=== PATIENT | male | born 1935 | race Caucasian/White ===

== ENCOUNTER 2018-01-08 05:28 | Inpatient (IN) | payer MEDICARE, OTHER ==
[2018-01-08] VITALS (8 sets, daily range): BP systolic 96–126; BP diastolic 56–72; PULSE 89–97; RESP 16–18; TEMP 97.4–98.7; O2SAT 94–100
[~2018-01-08] VITALS: Ht 167.6 cm; Wt 74.2 kg
[~2018-01-08 05:28] MED LIST: ACET325T PO; AMLO10 PO; AMLO5TAB2 PO; AVEELOT TOPICAL; DICL1GEL TOPICAL; FURO20TA PO; LORA0.5T PO; MELA1CAP; METF500 PO; METF500T PO; MIRTA15 PO; POTA10SO12 PO; Potassium Cl 40 Meq/30 Ml Liq PO; QUET1TAB7 PO; REME15TA PO; SERO50TA PO; XARE15TA PO
[2018-01-08] MEDS ORDERED: PANTOPRAZOLE INJ 80 MG in SODIUM CHLORIDE 0.9% INJ 35 ML IV ONE (05:45)
[2018-01-08] MEDS ORDERED: PANTOPRAZOLE INJ 80 MG in SODIUM CHLORIDE 0.9% INJ 100 ML IV SCH ×2 (05:45→06:59)
[2018-01-08] MEDS ORDERED: SODIUM CHLORIDE 0.9% FLUSH 10 ML FLUSH IVF PRN (05:45)
[2018-01-08 05:59] LABS: BASOPHIL % 0.1 % (0.0-2.0); HEMATOCRIT 34.8 % (39.0-51.0); HEMOGLOBIN 12.3 GM/DL (13.0-17.0); LYMPH % 3.8 % (9.0-44.0); LYMPHOCYTE # 0.5 TH/MM3 (1.0-4.8); MEAN CELL VOLUME 90.5 FL (80.0-100.0); MEAN CORPUSCULAR HGB CONC 35.4 % (32.0-36.0); MEAN PLATELET VOLUME 7.8 FL (7.0-11.0); MONO % 3.7 % (0.0-8.0); MONOCYTE # 0.5 TH/MM3 (0-0.9); NEUT % 92.4 % (16.0-70.0); PLATELET COUNT 198 TH/MM3 (150-450); RED BLOOD COUNT 3.85 MIL/MM3 (4.50-5.90); RED CELL DISTRIBUTION WIDTH 14.3 % (11.6-17.2)
[2018-01-08] MEDS ORDERED: PANTOPRAZOLE SODIUM 40 MG VIAL IV PUSH ONE (06:00)
[2018-01-08] MEDS ORDERED: POTA-163 PO (06:04)
[2018-01-08] MEDS ORDERED: SERO200T PO (06:04)
[2018-01-08] MEDS ORDERED: ARIC23TA PO (06:04)
[2018-01-08] MEDS ORDERED: ZOFR4SOL PO (06:04)
[2018-01-08] MEDS ORDERED: AMLO10 PO (06:04)
[2018-01-08 06:15] LABS: INTERNATIONAL NORMALIZED RATIO 1.3 RATIO; PROTHROMBIN TIME - PATIENT 12.9 SEC (9.8-11.6)
[2018-01-08 06:16] LABS: ALBUMIN 3.7 GM/DL (3.4-5.0); ALT (GPT) 14 U/L (12-78); AST (GOT) 9 U/L (15-37); BICARBONATE 25.4 MEQ/L (21.0-32.0); BLOOD UREA NITROGEN 26 MG/DL (7-18); CALCIUM 8.6 MG/DL (8.5-10.1); CHLORIDE 106 MEQ/L (98-107); GLOMERULAR FILTRATION RATE 58 ML/MIN (>89); GLUCOSE,RANDOM 197 MG/DL (74-106); SODIUM (NA) 140 MEQ/L (136-145)
[2018-01-08 06:18] LABS: ALKALINE PHOSPHATASE 73 U/L (45-117); TOTAL BILIRUBIN ADULT 0.8 MG/DL (0.2-1.0); TOTAL PROTEIN 6.9 GM/DL (6.4-8.2)
--- NOTE | 2018-01-08 06:23 | PD ---
HPI Chief Complaint: GI Complaint Time Seen by Provider: 05:43 Travel History International Travel<30 days: No Contact w/Intl Traveler<30days: No Traveled to known affect area: No History of Present Illness HPI Patient is a 82-year-old male who was in a assisted and they report that he had multiple episodes of coffee-ground emesis with a large quantity of dark coffee ground like vomit. Patient on arrival has normal blood pressure normal heart rate and he is guaiac negative with brown stool on initial eval he has no abdominal pain he has his right eyes held close however he is able to with nominal stimulation answer questions appropriately but he is demented his med list includes Felipe koroma main complaint is from the assisted that he had coffee ground emesis assume to be GI bleed upper and is in the ER stable at this time PFS Past Medical History Anemia: Yes Atrial Fibrillation: Yes Anxiety: Yes Cancer: No Cardiovascular Problems: No High Cholesterol: Yes Diabetes: Yes Patient Takes Glucophage: Yes (metformin) Diminished Hearing: No Deep Vein Thrombosis: Yes (xarelto ) GERD: Yes Headaches: No Hypertension: Yes Implanted Vascular Access Dvce: No Insomnia: Yes Medical other: Yes (dvt) Neurologic: Yes (DEMENTIA) Psychiatric: Yes Seizures: No Tetanus Vaccination: Unknown Influenza Vaccination: Yes Past Surgical History Other Surgery: Yes Social History Alcohol Use: No Tobacco Use: No Substance Use: No Allergies-Medications (Allergen,Severity, Reaction): Coded Allergies: No Known Allergies (Verified Adverse Reaction, Unknown, 01/08/18) Reported Meds & Prescriptions Reported Meds & Active Scripts Active Xarelto (Rivaroxaban) 15 Mg Tab 15 Mg PO DAILY [Potassium Cl 40 Meq/30 Ml Liq] 40 MEQ/30 ML Liqd 20 Meq PO DAILY Glucophage (Metformin HCl) 500 Mg Tab 500 Mg PO BIDPC Furosemide 20 Mg Tab 20 Mg PO DAILY Reported Potassium Chloride ER (Potassium Chloride) 20 Meq Tab 20 Meq PO DAILY Norvasc (Amlodipine Besylate) 10 Mg Tab 10 Mg PO DAILY Aricept (Donepezil) 23 Mg Tab 10 Mg PO HS Do not split, crushed or chewed. Zofran Liq (Ondansetron HCl) 4 Mg/5 Ml Soln 4 Mg PO Q8H PRN Seroquel (Quetiapine Fumarate) 200 Mg Tab 200 Mg PO BID Review of Systems Except as stated in HPI: all other systems reviewed are Neg Physical Exam Narrative GENERAL: Patient is awake alert and he is not complaining of anything at this time asked that he is any pain he said no but then he demented he says stop she' s kicking a SKIN: Warm and dry. HEAD: Atraumatic. Normocephalic. EYES: Pupils equal and round. No scleral icterus. No injection or drainage. He has eyelid droop on the right lid left eye is open the right eye is closed ENT: No nasal bleeding or discharge. Mucous membranes pink and moist. NECK: Trachea midline. No JVD. CARDIOVASCULAR: Regular rate and rhythm. RESPIRATORY: No accessory muscle use. Clear to auscultation. Breath sounds equal bilaterally. GASTROINTESTINAL: Abdomen soft, non-tender, nondistended. Hepatic and splenic margins not palpable. Rectal exam Brown stool guaiac negative MUSCULOSKELETAL: Extremities without clubbing, cyanosis, or edema. No obvious deformities. NEUROLOGICAL: Awake and alert. No obvious cranial nerve deficits. Motor grossly within normal limits. Five out of 5 muscle strength in the arms and legs. Normal speech. PSYCHIATRIC: Appropriate mood and affect; insight and judgment normal. Data Data Last Documented VS Vital Signs Date Time Temp Pulse Resp B/P (MAP) Pulse Ox O2 Delivery O2 Flow Rate FiO2 01/08/18 05:51 100 Room Air 01/08/18 05:33 97.4 89 18 Orders Orders Complete Blood Count With Diff (01/08/18 05:45) Comprehensive Metabolic Panel (01/08/18 05:45) Lipase (01/08/18 05:45) Prothrombin Time / Inr (Pt) (01/08/18 05:45) Urinalysis - C+S If Indicated (01/08/18 05:45) Type And Screen (01/08/18 05:45) Ecg Monitoring (01/08/18 05:45) Iv Access Insert/Monitor (01/08/18 05:45) Oximetry (01/08/18 05:45) Sodium Chloride 0.9% Flush (Ns Flush) (01/08/18 05:45) Sodium Chloride 0.9... W/Pantoprazole In (01/08/18 05:45) Sodium Chloride 0.9... W/Pantoprazole In (01/08/18 05:45) Pantoprazole Inj (Protonix Inj) (01/08/18 06:00) Sodium Chloride 0.9... W/Pantoprazole In (01/08/18 06:59) Chest, Pa & Lat (01/08/18 ) Labs Laboratory Tests Test 01/08/18 05:45 White Blood Count 13.0 TH/MM3 Red Blood Count 3.85 MIL/MM3 Hemoglobin 12.3 GM/DL Hematocrit 34.8 % Mean Corpuscular Volume 90.5 FL Mean Corpuscular Hemoglobin 32.0 PG Mean Corpuscular Hemoglobin Concent 35.4 % Red Cell Distribution Width 14.3 % Platelet Count 198 TH/MM3 Mean Platelet Volume 7.8 FL Neutrophils (%) (Auto) 92.4 % Lymphocytes (%) (Auto) 3.8 % Monocytes (%) (Auto) 3.7 % Eosinophils (%) (Auto) 0.0 % Basophils (%) (Auto) 0.1 % Neutrophils # (Auto) 12.0 TH/MM3 Lymphocytes # (Auto) 0.5 TH/MM3 Monocytes # (Auto) 0.5 TH/MM3 Eosinophils # (Auto) 0.0 TH/MM3 Basophils # (Auto) 0.0 TH/MM3 CBC Comment DIFF FINAL Differential Comment Prothrombin Time 12.9 SEC Prothromb Time International Ratio 1.3 RATIO Blood Urea Nitrogen 26 MG/DL Creatinine 1.20 MG/DL Random Glucose 197 MG/DL Albumin 3.7 GM/DL Calcium Level 8.6 MG/DL Aspartate Amino Transf (AST/SGOT) 9 U/L Alanine Aminotransferase (ALT/SGPT) 14 U/L Sodium Level 140 MEQ/L Potassium Level 3.6 MEQ/L Chloride Level 106 MEQ/L Carbon Dioxide Level 25.4 MEQ/L Anion Gap 9 MEQ/L Estimat Glomerular Filtration Rate 58 ML/MIN Lipase 168 U/L [facility] Medical Decision Making Medical Screen Exam Complete: Yes Emergency Medical Condition: Yes Differential Diagnosis Patient's differential diagnosis includes coffee-ground emesis from losing upper GI ulcer versus duodenal ulcer versus portal varices oozing blood. Versus having eaten food that was dark in nature because his initial guaiac is negative Narrative Course Patient is given 500 cc bolus normal saline he is given Protonix push and drip based on history of coffee ground emesis rectal exam Brown stool guaiac negative. Patient's vitals 122/70 blood pressure with a normal heart rate of 90 no signs of acute hemorrhage at this time. Will be evaluated for H&H will be given Protonix push and drip and consult inpatient as an inpatient patient with GI consult Bridger Damon MD Jan 08, 2018 06:23
--- NOTE | 2018-01-08 06:48 | RADRPT ---
EXAM DATE/TIME: 01/08/2018 06:29 [place] COMPARISON: No previous studies available for comparison. INDICATIONS : Pt with Nausea and Coffee ground emesis this morning. History of GI Bleed. MEDICAL HISTORY : Diabetes mellitus type II. Hypercholesterolemia. Hypertension. A-Fib, DVT, GERD SURGICAL HISTORY : None. ENCOUNTER: Initial ACUITY: 1 day PAIN SCORE: 9/10 LOCATION: Bilateral chest FINDINGS: PA and lateral views of the chest demonstrate mild basilar airspace disease. There is peribronchial t hickening. No significant effusion. No pneumothorax. Heart size normal. CONCLUSION: 1. Mild basilar airspace disease with mild peribronchial thickening. Differential diagnosis includes mild bronchopneumonia and aspiration. No effusion. Minh Schaefer MD on January 08, 2018 at 6:45 Board Certified Radiologist. This report was verified electronically.
[2018-01-08] MEDS ORDERED: AZITHROMYCIN INJ 500 MG in SODIUM CHLOR 0.9% 250 ML INJ 250 ML IV STA (07:25)
[2018-01-08] MEDS ORDERED: metroNIDAZOLE 500 MG INJ 100 ML IV STA (07:36)
[2018-01-08] MEDS ORDERED: cefTRIAXone INJ 2,000 MG in SODIUM CHLORIDE 0.9% INJ 100 ML IV STA (07:37)
[2018-01-08] MEDS ORDERED: ACETAMINOPHEN 325 MG TAB PO PRN (07:45)
[2018-01-08] MEDS ORDERED: NALOXONE HCL 0.4 MG/ML AMP IV PUSH PRN (07:45)
[2018-01-08] MEDS ORDERED: MAGNESIUM HYDROXIDE SUSP 30 ML CUP PO PRN (07:45)
[2018-01-08] MEDS ORDERED: ONDANSETRON HCL 4 MG/2 ML VIAL IVP PRN (07:45)
[2018-01-08] MEDS ORDERED: LACTULOSE SYRUP 20 GM/30 ML CUP PO PRN (07:45)
[2018-01-08] MEDS ORDERED: SENNOSIDES 8.6 MG TAB PO PRN (07:45)
[2018-01-08] MEDS ORDERED: BISACODYL 10 MG SUPP RECTAL PRN (07:45)
--- NOTE | 2018-01-08 07:53 | PD ---
Physical Exam Narrative GENERAL: SKIN: Warm and dry. HEAD: Atraumatic. Normocephalic. EYES: Pupils equal and round. No scleral icterus. No injection or drainage. ENT: No nasal bleeding or discharge. Mucous membranes pink and moist. NECK: Trachea midline. No JVD. CARDIOVASCULAR: Regular rate and rhythm. RESPIRATORY: No accessory muscle use. Clear to auscultation. Breath sounds equal bilaterally. GASTROINTESTINAL: Abdomen soft, non-tender, nondistended MUSCULOSKELETAL: Extremities without clubbing, cyanosis, or edema. No obvious deformities. NEUROLOGICAL: Awake and alert. No obvious cranial nerve deficits. Motor grossly within normal limits. Five out of 5 muscle strength in the arms and legs. Normal speech. PSYCHIATRIC: Appropriate mood and affect; insight and judgment normal. Data Data Last Documented VS Vital Signs Date Time Temp Pulse Resp B/P (MAP) Pulse Ox O2 Delivery O2 Flow Rate FiO2 01/08/18 05:51 100 Room Air 01/08/18 05:33 97.4 89 18 Orders Orders Complete Blood Count With Diff (01/08/18 05:45) Comprehensive Metabolic Panel (01/08/18 05:45) Lipase (01/08/18 05:45) Prothrombin Time / Inr (Pt) (01/08/18 05:45) Urinalysis - C+S If Indicated (01/08/18 05:45) Type And Screen (01/08/18 05:45) Ecg Monitoring (01/08/18 05:45) Iv Access Insert/Monitor (01/08/18 05:45) Oximetry (01/08/18 05:45) Sodium Chloride 0.9% Flush (Ns Flush) (01/08/18 05:45) Sodium Chloride 0.9... W/Pantoprazole In (01/08/18 05:45) Sodium Chloride 0.9... W/Pantoprazole In (01/08/18 05:45) Pantoprazole Inj (Protonix Inj) (01/08/18 06:00) Sodium Chloride 0.9... W/Pantoprazole In (01/08/18 06:59) Chest, Pa & Lat (01/08/18 ) Ceftriaxone Inj (Rocephin Inj) (01/08/18 07:37) Azithromycin Inj (Zithromax Inj) (01/08/18 07:25) Metronidazole 500 Mg Inj (Flagyl 500 Mg (01/08/18 07:36) Blood Culture (01/08/18 07:25) Sputum Culture And Gram Stain (01/08/18 07:25) Influenzae A/B Antigen (01/08/18 07:25) Lactic Acid Sepsis Protocol (01/08/18 07:25) Admit Order (Ed Use Only) (01/08/18 07:46) Admit To Inpatient (01/08/18 ) Vital Signs (Adult) Q4H (01/08/18 07:45) Activity Oob With Assistance (01/08/18 07:45) Amphibian Crewmember / Telemetry .CONTINUOUS (01/08/18 07:45) Diet Npo (01/08/18 Breakfast) Acetaminophen (Tylenol) (01/08/18 07:45) Ondansetron Inj (Zofran Inj) (01/08/18 07:45) Basic Metabolic Panel (Bmp) (01/09/18 06:00) Complete Blood Count With Diff (01/09/18 06:00) Resp Oxygen Tai C Titrat 1-4 L (01/08/18 ) Scd Bilateral/Knee High SWATI.BID (01/08/18 07:45) Ector Bilateral/Knee High SWATI.QSHIFT (01/08/18 07:45) Naloxone Inj (Narcan Inj) (01/08/18 07:45) Docusate Sodium-Senna (Nayely-Colace) (01/08/18 09:00) Magnesium Hydroxide Liq (Milk Of Magnesi (01/08/18 07:45) Sennosides (Senokot) (01/08/18 07:45) Bisacodyl Supp (Dulcolax Supp) (01/08/18 07:45) Lactulose Liq (Lactulose Liq) (01/08/18 07:45) Inpatient Certification (01/08/18 ) Consult Gastroenterology (01/08/18 ) Hgb & Hct (01/08/18 11:30) Hgb & Hct (01/08/18 17:30) Hgb & Hct (01/08/18 23:30) Hgb & Hct (01/09/18 05:30) Hgb & Hct (01/09/18 11:30) Hgb & Hct (01/09/18 17:30) Sodium Chloride 0.9... W/Pantoprazole In (01/08/18 08:45) Speech Therapy Consult-Eval/Tx (01/08/18 07:45) Labs Laboratory Tests Test 01/08/18 05:45 White Blood Count 13.0 TH/MM3 Red Blood Count 3.85 MIL/MM3 Hemoglobin 12.3 GM/DL Hematocrit 34.8 % Mean Corpuscular Volume 90.5 FL Mean Corpuscular Hemoglobin 32.0 PG Mean Corpuscular Hemoglobin Concent 35.4 % Red Cell Distribution Width 14.3 % Platelet Count 198 TH/MM3 Mean Platelet Volume 7.8 FL Neutrophils (%) (Auto) 92.4 % Lymphocytes (%) (Auto) 3.8 % Monocytes (%) (Auto) 3.7 % Eosinophils (%) (Auto) 0.0 % Basophils (%) (Auto) 0.1 % Neutrophils # (Auto) 12.0 TH/MM3 Lymphocytes # (Auto) 0.5 TH/MM3 Monocytes # (Auto) 0.5 TH/MM3 Eosinophils # (Auto) 0.0 TH/MM3 Basophils # (Auto) 0.0 TH/MM3 CBC Comment DIFF FINAL Differential Comment Prothrombin Time 12.9 SEC Prothromb Time International Ratio 1.3 RATIO Blood Urea Nitrogen 26 MG/DL Creatinine 1.20 MG/DL Random Glucose 197 MG/DL Total Protein 6.9 GM/DL Albumin 3.7 GM/DL Calcium Level 8.6 MG/DL Alkaline Phosphatase 73 U/L Aspartate Amino Transf (AST/SGOT) 9 U/L Alanine Aminotransferase (ALT/SGPT) 14 U/L Total Bilirubin 0.8 MG/DL Sodium Level 140 MEQ/L Potassium Level 3.6 MEQ/L Chloride Level 106 MEQ/L Carbon Dioxide Level 25.4 MEQ/L Anion Gap 9 MEQ/L Estimat Glomerular Filtration Rate 58 ML/MIN Lipase 168 U/L [facility] Medical Record Reviewed: Yes Supervised Visit with REAGAN: No Narrative Course Coagulation factors normal limits, hemodynamically stable, H&H stable and normal, electrolytes within normal limits. Diagnosis Primary Impression: Coffee ground emesis Additional Impression: Aspiration pneumonia Qualified Codes: J69.0 - Pneumonitis due to inhalation of food and vomit Admitting Information Admitting Physician Requests: Observation John Sagastume MD Jan 08, 2018 07:53
[2018-01-08 08:34] LABS: LACTIC ACID SEPSIS PROTOCOL 2.8 mmol/L (0.4-2.0)
[2018-01-08] MEDS: DOCUSATE SODIUM 50 MG/SENNA 8.6 MG TAB PO SCH ×2 (09:00→21:03)
--- NOTE | 2018-01-08 09:39 | PD.CONS ---
HPI History of Present Illness This is a 82 year old M with medical history significant for anemia, atrial fibrillation, hyperlipidemia, DM, history of DVT, and dementia. Pt is a resident at a [place], he was sent by staff for evaluation of coffee ground emesis. Pt is unable to respond appropriately to questions, and therefore most of the history is obtained through chart review. Pts son (Jesse Dewey) who is also POA is at bedside, he does not know much history. States he was called by [place] staff this morning and was told pt was vomiting what appeared to be blood and they were sending him to the ER. Pt is on Xarelto for history of DVT and atrial fibrillation, last dosage received yesterday. Per ER notes pt had a normal brown BM, guaiac stool negative. H/H 12.3/34.8 on admission, serial H/H ordered by attending. Per pts son pt has never had EGD or colonoscopy in the past, denies him ever having history of GIB. (Jailyn Sarmiento) PFSH Past Medical History History of DVT Atrial fibrillation DM HTN Hyperlipidemia Past Surgical History Femur (Jailyn Sarmiento) Coded Allergies: No Known Allergies (Verified Allergy, Unknown, 01/08/18) Review of Systems unable to obtain, pt demented, does not express complaints (Jailyn Sarmiento) GI Exam Vitals I&O Vital Signs Date Time Temp Pulse Resp B/P (MAP) Pulse Ox O2 Delivery O2 Flow Rate FiO2 01/08/18 08:56 01/08/18 05:51 100 Room Air 01/08/18 05:39 120/59 (79) 01/08/18 05:39 126/61 (82) 01/08/18 05:33 97.4 89 18 96/72 (80) 94 I/O 01/07/18 01/07/18 01/07/18 01/08/18 01/08/18 01/08/18 07:00 15:00 23:00 07:00 15:00 23:00 Intake Total 100 ml Balance 100 ml IV Total 100 ml # Bowel Movements 1 Imaging Last Impressions Chest X-Ray 01/08/18 0000 Signed Impressions: Service Date/Time: Monday, January 08, 2018 06:29 - CONCLUSION: 1. Mild basilar airspace disease with mild peribronchial thickening. Differential diagnosis includes mild bronchopneumonia and aspiration. No effusion. Minh Schaefer MD Laboratory Test 01/08/18 05:45 01/08/18 08:10 White Blood Count 13.0 TH/MM3 Red Blood Count 3.85 MIL/MM3 Hemoglobin 12.3 GM/DL Hematocrit 34.8 % Mean Corpuscular Volume 90.5 FL Mean Corpuscular Hemoglobin 32.0 PG Mean Corpuscular Hemoglobin Concent 35.4 % Red Cell Distribution Width 14.3 % Platelet Count 198 TH/MM3 Mean Platelet Volume 7.8 FL Neutrophils (%) (Auto) 92.4 % Lymphocytes (%) (Auto) 3.8 % Monocytes (%) (Auto) 3.7 % Eosinophils (%) (Auto) 0.0 % Basophils (%) (Auto) 0.1 % Neutrophils # (Auto) 12.0 TH/MM3 Lymphocytes # (Auto) 0.5 TH/MM3 Monocytes # (Auto) 0.5 TH/MM3 Eosinophils # (Auto) 0.0 TH/MM3 Basophils # (Auto) 0.0 TH/MM3 CBC Comment DIFF FINAL Differential Comment Prothrombin Time 12.9 SEC Prothromb Time International Ratio 1.3 RATIO Blood Urea Nitrogen 26 MG/DL Creatinine 1.20 MG/DL Random Glucose 197 MG/DL Total Protein 6.9 GM/DL Albumin 3.7 GM/DL Calcium Level 8.6 MG/DL Alkaline Phosphatase 73 U/L Aspartate Amino Transf (AST/SGOT) 9 U/L Alanine Aminotransferase (ALT/SGPT) 14 U/L Total Bilirubin 0.8 MG/DL Sodium Level 140 MEQ/L Potassium Level 3.6 MEQ/L Chloride Level 106 MEQ/L Carbon Dioxide Level 25.4 MEQ/L Anion Gap 9 MEQ/L Estimat Glomerular Filtration Rate 58 ML/MIN Lipase 168 U/L Lactic Acid Level 2.8 mmol/L Date/Time Source Procedure Growth Status 01/08/18 08:51 Blood Peripheral Aerobic Blood Culture Pending Received 01/08/18 08:51 Blood Peripheral Anaerobic Blood Culture Pending Received 01/08/18 08:25 Nasal Washing Influenza Types A,B Antigen (TRENT) - Final NEGATIVE FOR FLU A AND B ANTIGEN.... Complete Physical Examination HEENT: Normocephalic; atraumatic CHEST: Even/unlabored CARDIAC: Irregular ABDOMEN: Soft, nondistended, nontender (pt does not grimace with palpation), bowel sounds active EXTREMITIES: No clubbing, cyanosis, or edema. SKIN: Normal; no rash; no jaundice. VIBRATION ANALYST: Awake, not oriented (Jailyn Sarmiento) Assessment and Plan Plan Assessment - Coffee ground emesis per [place] staff- sent for evaluation- brown stool reported in ER, guaiac stool negative. Pts son at bedside, denies pt having history of GIB. States pt has never had EGD or colonoscopy. Pt on Xarelto for history of DVT and a-fib, last dosage received yesterday. H/H 12.3/34.8 on admission. VS stable. Currently on Pantoprazole chandu CASTELLANOS Jesse Dewey (son) can be contacted at [phone] for consent Plan: EGD tomorrow NPO after MN Obtain consent Serial H/H Transfuse as needed Continue Protonix gtt Notify GI of any change in status Hold anticoagulation Further recommendations to follow based on results of above Pt has been seen and examined by myself and Dr. Vo and this note is written on her behalf (Jailyn Sarmiento) Physician Comments seen, examined agree with above (Abigail Vo MD) Jailyn Sarmiento Jan 08, 2018 09:39 Abigail Vo MD Jan 08, 2018 20:29
--- NOTE | 2018-01-08 10:00 | HHI.HP ---
[facility] Service [facility] Primary Care Physician Yakelin Montilla MD Admission Diagnosis COFFEE GROUND EMESIS, ASPIRATION PNA Diagnoses: (1) Coffee ground emesis (2) Aspiration pneumonia (3) Dementia Chief Complaint: Coffee ground emesis Travel History International Travel<30 Days: No Contact w/Intl Traveler <30 Da: No Traveled to Known Affected Are: No History of Present Illness The patient is an 82-year-old male who was sent from the retirement facility following multiple episodes of coffee-ground emesis. There is concerned that he aspirated during the episodes of vomiting. The patient has advanced dementia and is unable to provide any history. He denies pain currently. He denies shortness of breath. Further history is obtained from discussion with the patient's son at bedside as well as review of the patient's chart. Review of Systems ROS Limitations: Clinical Condition, Poor Historian Past Family Social History Past Medical History Atrial fibrillation Diabetes mellitus Hypertension Dementia Past Surgical History Repair of femur fracture Reported Medications Xarelto (Rivaroxaban) 15 Mg Tab 15 Mg PO DAILY [Potassium Cl 40 Meq/30 Ml Liq] 40 MEQ/30 ML Liqd 20 Meq PO DAILY Glucophage (Metformin HCl) 500 Mg Tab 500 Mg PO BIDPC Furosemide 20 Mg Tab 20 Mg PO DAILY Potassium Chloride ER (Potassium Chloride) 20 Meq Tab 20 Meq PO DAILY Norvasc (Amlodipine Besylate) 10 Mg Tab 10 Mg PO DAILY Aricept (Donepezil) 23 Mg Tab 10 Mg PO HS Do not split, crushed or chewed. Zofran Liq (Ondansetron HCl) 4 Mg/5 Ml Soln 4 Mg PO Q8H PRN Seroquel (Quetiapine Fumarate) 200 Mg Tab 200 Mg PO BID Allergies: Coded Allergies: No Known Allergies (Verified Allergy, Unknown, 01/08/18) Family History Unobtainable. Social History No reported history of alcohol, tobacco, or illicit drug use. Physical Exam Vital Signs Vital Signs Date Time Temp Pulse Resp B/P (MAP) Pulse Ox O2 Delivery O2 Flow Rate FiO2 01/08/18 08:56 01/08/18 05:51 100 Room Air 2/9/18 05:39 120/59 (79) 01/08/18 05:39 126/61 (82) 01/08/18 05:33 97.4 89 18 96/72 (80) 94 Physical Exam GENERAL: Elderly male in no acute distress. HEENT: Normocephalic, atraumatic. Pupils equal, round and reactive. Extraocular movements intact. No scleral icterus. No injection or drainage. Oropharynx is clear. Mucous membranes are moist. CARDIOVASCULAR: Regular rate and rhythm without murmurs, gallops, or rubs. RESPIRATORY: Clear to auscultation. No wheezes, rales, or rhonchi. Breathing is non-labored. GASTROINTESTINAL: Abdomen soft, non-tender, nondistended. EXTREMITIES: No lower extremity edema. No calf tenderness. PSYCH: Alert, confused. Laboratory Laboratory Tests Test 01/08/18 05:45 01/08/18 08:10 White Blood Count 13.0 Red Blood Count 3.85 Hemoglobin 12.3 Hematocrit 34.8 Mean Corpuscular Volume 90.5 Mean Corpuscular Hemoglobin 32.0 Mean Corpuscular Hemoglobin Concent 35.4 Red Cell Distribution Width 14.3 Platelet Count 198 Mean Platelet Volume 7.8 Neutrophils (%) (Auto) 92.4 Lymphocytes (%) (Auto) 3.8 Monocytes (%) (Auto) 3.7 Eosinophils (%) (Auto) 0.0 Basophils (%) (Auto) 0.1 Neutrophils # (Auto) 12.0 Lymphocytes # (Auto) 0.5 Monocytes # (Auto) 0.5 Eosinophils # (Auto) 0.0 Basophils # (Auto) 0.0 CBC Comment DIFF FINAL Differential Comment Prothrombin Time 12.9 Prothromb Time International Ratio 1.3 Blood Urea Nitrogen 26 Creatinine 1.20 Random Glucose 197 Total Protein 6.9 Albumin 3.7 Calcium Level 8.6 Alkaline Phosphatase 73 Aspartate Amino Transf (AST/SGOT) 9 Alanine Aminotransferase (ALT/SGPT) 14 Total Bilirubin 0.8 Sodium Level 140 Potassium Level 3.6 Chloride Level 106 Carbon Dioxide Level 25.4 Anion Gap 9 Estimat Glomerular Filtration Rate 58 Lipase 168 Lactic Acid Level 2.8 Date/Time Source Procedure Growth Status 01/08/18 08:51 Blood Peripheral Aerobic Blood Culture Pending Received 01/08/18 08:51 Blood Peripheral Anaerobic Blood Culture Pending Received 01/08/18 08:25 Nasal Washing Influenza Types A,B Antigen (TRENT) - Final NEGATIVE FOR FLU A AND B ANTIGEN.... Complete Result Diagram: 01/08/18 0545 01/08/18 0545 Imaging Last Impressions Chest X-Ray 01/08/18 0000 Signed Impressions: Service Date/Time: Monday, January 08, 2018 06:29 - CONCLUSION: 1. Mild basilar airspace disease with mild peribronchial thickening. Differential diagnosis includes mild bronchopneumonia and aspiration. No effusion. MD Martha Calvillo VTE Risk Assessment Caprini VTE Risk Assessment: Mod/High Risk (score >= 2) Caprini Risk Assessment Model Point Value = 1 Point Value = 2 Point Value = 3 Point Value = 5 Age 41-60 Minor surgery BMI > 25 kg/m2 Swollen legs Varicose veins or History of unexplained or recurrent spontaneous Oral contraceptives or hormone replacement Sepsis (< 1 month) Serious lung disease, including pneumonia (< 1 month) Abnormal pulmonary function Acute myocardial infarction Congestive heart failure (< 1 month) History of inflammatory bowel disease Medical patient at bed rest Age 61-74 Arthroscopic surgery Major open surgery (> 45 min) Laparoscopic surgery (> 45 min) Malignancy Confined to bed (> 72 hours) Immobilizing plaster cast Central venous access Age >= 75 History of VTE Family history of VTE Factor V Leiden Prothrombin [id number] Lupus anticoagulant Anticardiolipin antibodies Elevated serum homocysteine Heparin-induced thrombocytopenia Other congenital or acquired thrombophilia Stroke (< 1 month) Elective arthroplasty Hip, pelvis, or leg fracture Acute spinal cord injury (< 1 month) Prophylaxis Regimen Total Risk Factor Score Risk Level Prophylaxis Regimen 0-1 Low Early ambulation 2 Moderate Order ONE of the following: *Sequential Compression Device (SCD) *Heparin 5000 units SQ BID 3-4 Higher Order ONE of the following medications: *Heparin 5000 units SQ TID *Enoxaparin/Lovenox 40 mg SQ daily (WT < 150 kg, CrCl > 30 mL/min) *Enoxaparin/Lovenox 30 mg SQ daily (WT < 150 kg, CrCl > 10-29 mL/min) *Enoxaparin/Lovenox 30 mg SQ BID (WT < 150 kg, CrCl > 30 mL/min) AND/OR *Sequential Compression Device (SCD) 5 or more Highest Order ONE of the following medications: *Heparin 5000 units SQ TID (Preferred with Epidurals) *Enoxaparin/Lovenox 40 mg SQ daily (WT < 150 kg, CrCl > 30 mL/min) *Enoxaparin/Lovenox 30 mg SQ daily (WT < 150 kg, CrCl > 10-29 mL/min) *Enoxaparin/Lovenox 30 mg SQ BID (WT < 150 kg, CrCl > 30 mL/min) AND *Sequential Compression Device (SCD) Assessment and Plan Assessment and Plan 1. GI bleed with coffee-ground emesis: Monitor H&H closely. Transfuse if necessary. Gastroenterology consult. Endoscopy tomorrow. Continue Protonix drip. 2. Pneumonia: Possibly secondary to aspiration. Continue antibiotics. Oxygen as needed. Currently stable on room air. 3. Hypertension: Monitor blood pressure. Antihypertensive medications on hold currently. Will restart if blood pressure increases. 4. Diabetes mellitus: Monitor Accu-Cheks and cover with sliding scale insulin. Hold oral hypoglycemic medications. 5. DVT prophylaxis: [id number]. Avoid chemical prophylaxis secondary to GI bleed. Problem Qualifiers (1) Aspiration pneumonia: Qualified Codes: J69.0 - Pneumonitis due to inhalation of food and vomit Luis Eduardo Lima MD Jan 08, 2018 10:00
[2018-01-08] MEDS ORDERED: Vancomycin Consult Pharmacy 1 EA OTHER SCH (10:15)
[2018-01-08] MEDS: PANTOPRAZOLE INJ 80 MG in SODIUM CHLORIDE 0.9% INJ 100 ML IV SCH ×2 (10:25→18:18)
[2018-01-08] MEDS: NS + KCL 20 MEQ INJ 1,000 ML IV SCH ×2 (10:25→21:03)
[2018-01-08] MEDS: PIPERACIL-TAZO 3.375 GM PREMIX 50 ML IV SCH ×2 (12:52→18:15)
[2018-01-08] MEDS: VANCOMYCIN 1,500 MG/NS 500 ML IV SCH ×2 (12:53)
[2018-01-08 13:08] LABS: HEMATOCRIT 33.9 % (39.0-51.0); HEMOGLOBIN 11.8 GM/DL (13.0-17.0)
[2018-01-08] MEDS: DONEPEZIL HCL 5 MG TAB PO SCH (21:03)
[2018-01-08] MEDS: QUEtiapine FUMARATE 200 MG TAB PO SCH (21:03)
[2018-01-08 21:25] LABS: BILIRUBIN, URINE NEG (NEG); BLOOD, URINE NEG (NEG); GLUCOSE,URINE NEG (NEG); KETONE, URINE NEG (NEG); NITRITE,URINE NEG (NEG); PH, URINE 6.5 (5.0-8.5); URINE COLOR YELLOW (YELLW/STRAW); URINE LEUKOCYTE ESTERASE NEG (NEG)
[2018-01-08] MEDS ORDERED: LACTATED RINGER'S 1000 ML IV PRN (22:15)
[2018-01-08] MEDS ORDERED: SODIUM CHLORID 0.9% 500 ML IV PRN (22:15)
[2018-01-08] MEDS ORDERED: CHLORHEXIDINE GLUCONATE 2 % 1 PACK (2 CLOTHS) TOPICAL PRN (22:15)
[2018-01-08] MEDS ORDERED: POVIDONE IODINE 5% (ANTISEPSIS KIT) 4 APPLICATIONS EACH NARE PRN (22:15)
[2018-01-08] MEDS ORDERED: METOPROLOL TARTRATE 25 MG TAB PO PRN (22:15)
[2018-01-09] VITALS (9 sets, daily range): BP systolic 100–131; BP diastolic 50–69; PULSE 62–87; RESP 16–18; TEMP 97.1–98.4; O2SAT 95–97
[2018-01-09 00:37] LABS: HEMATOCRIT 28.6 % (39.0-51.0); HEMOGLOBIN 10.1 GM/DL (13.0-17.0)
[2018-01-09] MEDS: PANTOPRAZOLE INJ 80 MG in SODIUM CHLORIDE 0.9% INJ 100 ML IV SCH ×2 (04:30→15:00)
[2018-01-09] MEDS: PIPERACIL-TAZO 3.375 GM PREMIX 50 ML IV SCH ×3 (04:30→20:26)
[2018-01-09] MEDS: NS + KCL 20 MEQ INJ 1,000 ML IV SCH ×2 (04:30→19:45)
[2018-01-09 06:30] LABS: AUTOMATED NEUTROPHIL # 7.8 TH/MM3 (1.8-7.7); BASOPHIL % 0.4 % (0.0-2.0); EOSINOPHIL # 0.1 TH/MM3 (0-0.4); EOSINOPHIL % 1.4 % (0.0-4.0); HEMATOCRIT 29.7 % (39.0-51.0); HEMOGLOBIN 10.8 GM/DL (13.0-17.0); LYMPHOCYTE # 1.3 TH/MM3 (1.0-4.8); MEAN CELL VOLUME 91.8 FL (80.0-100.0); MEAN CORPUSCULAR HEMOGLOBIN 33.5 PG (27.0-34.0); MEAN PLATELET VOLUME 8.3 FL (7.0-11.0); MONO % 4.6 % (0.0-8.0); MONOCYTE # 0.4 TH/MM3 (0-0.9); NEUT % 80.6 % (16.0-70.0); PLATELET COUNT 141 TH/MM3 (150-450); RED BLOOD COUNT 3.23 MIL/MM3 (4.50-5.90); RED CELL DISTRIBUTION WIDTH 13.7 % (11.6-17.2); WHITE BLOOD COUNT 9.7 TH/MM3 (4.0-11.0)
[2018-01-09 06:33] LABS: MEAN CORPUSCULAR HGB CONC 36.5 % (32.0-36.0)
[2018-01-09 07:08] LABS: BICARBONATE 25.5 MEQ/L (21.0-32.0); CALCIUM 8.1 MG/DL (8.5-10.1); CREATININE 1.09 MG/DL (0.60-1.30)
[2018-01-09] MEDS ORDERED: DEXTROSE 50% IN WATER 50 ML VIAL(D50) IV PUSH PRN (08:15)
[2018-01-09] MEDS ORDERED: GLUCAGON 1 MG/ML VIAL OTHER PRN (08:15)
--- NOTE | 2018-01-09 08:29 | HHI.PR ---
Subjective Remarks Follow up GI bleed, pneumonia. Patient has been agitated and is still requiring restraints. He denies pain at this time. He is confused. Objective Vitals Vital Signs Date Time Temp Pulse Resp B/P (MAP) Pulse Ox O2 Delivery O2 Flow Rate FiO2 01/09/18 04:37 95 01/09/18 04:00 97.8 71 16 114/54 (74) 96 01/09/18 04:00 97.8 71 16 114/54 (74) 96 01/09/18 00:00 97.1 87 17 108/56 (73) 95 01/09/18 00:00 97.1 87 17 108/56 (73) 95 01/08/18 20:00 98.1 92 16 110/56 (74) 94 01/08/18 20:00 98.1 92 16 110/56 (74) 94 01/08/18 19:46 89 01/08/18 17:37 99 21 01/08/18 16:00 98.7 95 17 117/66 (83) 97 01/08/18 12:00 98.5 97 17 126/62 (83) 97 01/08/18 08:56 I/O 01/08/18 01/08/18 01/08/18 01/09/18 01/09/18 01/09/18 07:00 15:00 23:00 07:00 15:00 23:00 Intake Total 200 ml 220 ml 1100 ml Output Total 50 ml 200 ml Balance 200 ml 170 ml 900 ml Intake Oral 100 ml 220 ml 0 ml IV Total 100 ml 1100 ml Output Urine Total 50 ml 200 ml # Voids 1 # Bowel Movements 1 1 Result Diagram: 01/09/18 0600 01/09/18 0600 Imaging Last Impressions Chest X-Ray 01/08/18 0000 Signed Impressions: Service Date/Time: Monday, January 08, 2018 06:29 - CONCLUSION: 1. Mild basilar airspace disease with mild peribronchial thickening. Differential diagnosis includes mild bronchopneumonia and aspiration. No effusion. Minh Schaefer MD Objective Remarks General: Elderly male in no acute distress. Heart: Regular rate and rhythm. No murmur. Lungs: Clear to auscultation bilaterally. No wheezes, rales, or rhonchi. Breathing is nonlabored. Abdomen: Soft, nontender, nondistended. Extremities: No lower extremity edema. Psych: Alert, confused. Procedures None Urinary Catheter: No Vascular Central Line Catheter: No A/P Problem List: (1) Coffee ground emesis ICD Code: K92.0 - Hematemesis Status: Acute (2) Aspiration pneumonia ICD Code: J69.0 - Pneumonitis due to inhalation of food and vomit Status: Acute (3) Dementia ICD Code: F03.90 - Dementia Status: Acute Assessment and Plan 1. GI bleed with coffee-ground emesis: H&H decreased overnight, but stabilized. Monitor H&H closely. Transfuse if necessary. Appreciate GI recommendations. Planning for EGD today. Continue Protonix drip. 2. Pneumonia: Possibly secondary to aspiration. Continue antibiotics ( vancomycin, Zosyn). Oxygen as needed. Currently stable on room air. 3. Hypertension: Monitor blood pressure. Antihypertensive medications on hold currently. Will restart if blood pressure increases. 4. Diabetes mellitus: Monitor Accu-Cheks and cover with sliding scale insulin. Hold oral hypoglycemic medications. 5. DVT prophylaxis: LORETA [place]. Avoid chemical prophylaxis secondary to GI bleed. 6. Dementia, agitation: Patient has been requiring restraints as he has been trying to pull out his IV lines and has been combative with staff. Continue Aricept, Seroquel. 7. Lactic acidosis: Serum lactic acid level trending up. Repeat labs ordered. Problem Qualifiers (1) Aspiration pneumonia: Qualified Codes: J69.0 - Pneumonitis due to inhalation of food and vomit Luis Eduardo Lima MD Jan 09, 2018 08:29
[2018-01-09] MEDS: DOCUSATE SODIUM 50 MG/SENNA 8.6 MG TAB PO SCH ×2 (09:00→20:36)
[2018-01-09] MEDS: QUEtiapine FUMARATE 200 MG TAB PO SCH ×2 (09:00→20:36)
[2018-01-09] MEDS: VANCOMYCIN 1,500 MG/NS 500 ML IV SCH ×2 (11:56)
[2018-01-09] MEDS: INSULIN ASPART SUPPLEMENTAL SCALE SQ SCH ×3 (12:00→21:00)
[2018-01-09] MEDS ORDERED: PROPOFOL 200 MG/20 ML AMP IV ONE (12:00)
[2018-01-09] MEDS ORDERED: LIDOCAINE HCL 1% PF 5 ML SYRINGE OTHER ONE (12:00)
[2018-01-09] MEDS ORDERED: SUCCINYLCHOLINE CHLORIDE 200 MG/10 ML VIAL IV ONE (12:00)
[2018-01-09] MEDS ORDERED: KETAMINE HCL 500 MG/5 ML VIAL ONE (18:13)
--- NOTE | 2018-01-09 18:14 | PD.PROCEDR ---
GI Procedure PROCEDURE PERFORMED EGD with biopsy INDICATION FOR PROCEDURE Coffee-ground emesis, anemia PROCEDURE: The procedure, risks and benefits were discussed with Mr. Dewey and informed consent was obtained. Anesthesia sedated him with Diprivan. He was placed in the left lateral decubitus position. EGD: The Pentax videoscope was introduced through the oropharynx and advanced to the second portion of the duodenum under direct visualization. Retroflexion was performed in the stomach. FINDINGS: Esophagus this appeared to be unremarkable the Z line appeared to be regular The stomach there was a small hiatal hernia there was some mild patchy erythema in the antrum but no ulcerations no erosions no blood or bleeding antral biopsies were taken further evaluation the rest of the stomach was unremarkable The duodenum this was normal ESTIMATED BLOOD LOSS: None SPECIMENS REMOVED: Antral biopsy COMPLICATIONS: None IMPRESSION: Small hiatal hernia Mild gastritis PLAN: Await biopsy Advance diet Continue PPI Monitor labs Arian Barraza MD Jan 09, 2018 18:14
[2018-01-09] MEDS ORDERED: DO NOT ADM ANY ANTICOAGULANT DRUGS PRN (18:30)
[2018-01-09 19:10] LABS: HEMATOCRIT 29.4 % (39.0-51.0); HEMOGLOBIN 10.5 GM/DL (13.0-17.0)
[2018-01-09] MEDS: DONEPEZIL HCL 5 MG TAB PO SCH (20:35)
--- NOTE | 2018-01-09 23:40 | EKG ---
Date Performed: 01/08/2018 Time Performed: 22:24:40 PTAGE: 82 years EKG: Sinus rhythm WITH FIRST DEGREE AV BLOCK MARKED LEFT AXIS DEVIATION MODERATE INTRAVENTRICULAR CONDUCTION DELAY NON SPECIFIC T-WAVE ABNORMALITY ABNORMAL ECG PREVIOUS TRACING : 09/24/2016 21.44 Compared to prior tracing, probably no significant change, although previous EKG has baseline artifact making comparison difficult DOCTOR: Shane Judd Interpretating Date/Time 01/09/2018 23:39:27
[2018-01-10] VITALS (9 sets, daily range): BP systolic 120–140; BP diastolic 63–79; PULSE 56–73; RESP 16–19; TEMP 97–99.1; O2SAT 95–99
[2018-01-10] MEDS: PIPERACIL-TAZO 3.375 GM PREMIX 50 ML IV SCH ×3 (03:45→17:41)
[2018-01-10] MEDS: PANTOPRAZOLE INJ 80 MG in SODIUM CHLORIDE 0.9% INJ 100 ML IV SCH (05:00)
[2018-01-10 07:42] LABS: AUTOMATED NEUTROPHIL # 6.3 TH/MM3 (1.8-7.7); BASOPHIL % 0.4 % (0.0-2.0); EOSINOPHIL # 0.2 TH/MM3 (0-0.4); EOSINOPHIL % 2.8 % (0.0-4.0); HEMATOCRIT 32.6 % (39.0-51.0); HEMOGLOBIN 11.4 GM/DL (13.0-17.0); LYMPH % 11.4 % (9.0-44.0); LYMPHOCYTE # 0.9 TH/MM3 (1.0-4.8); MEAN CELL VOLUME 91.1 FL (80.0-100.0); MEAN CORPUSCULAR HGB CONC 35.1 % (32.0-36.0); MEAN PLATELET VOLUME 8.3 FL (7.0-11.0); MONO % 4.9 % (0.0-8.0); MONOCYTE # 0.4 TH/MM3 (0-0.9); NEUT % 80.5 % (16.0-70.0); PLATELET COUNT 180 TH/MM3 (150-450); RED BLOOD COUNT 3.58 MIL/MM3 (4.50-5.90); RED CELL DISTRIBUTION WIDTH 13.9 % (11.6-17.2); WHITE BLOOD COUNT 7.9 TH/MM3 (4.0-11.0)
[2018-01-10] MEDS: DOCUSATE SODIUM 50 MG/SENNA 8.6 MG TAB PO SCH ×2 (07:56→20:53)
[2018-01-10] MEDS: QUEtiapine FUMARATE 200 MG TAB PO SCH ×2 (07:56→20:54)
[2018-01-10] MEDS: NS + KCL 20 MEQ INJ 1,000 ML IV SCH ×2 (07:56→19:35)
[2018-01-10] MEDS: INSULIN ASPART SUPPLEMENTAL SCALE SQ SCH ×4 (08:01→20:58)
[2018-01-10 08:04] LABS: CALCIUM 8.2 MG/DL (8.5-10.1); CREATININE 0.95 MG/DL (0.60-1.30)
--- NOTE | 2018-01-10 09:11 | HHI.PR ---
Subjective Remarks Follow up pneumonia, GI bleed. Patient is very confused. He is still in restraints. Objective Vitals Vital Signs Date Time Temp Pulse Resp B/P (MAP) Pulse Ox O2 Delivery O2 Flow Rate FiO2 01/10/18 08:00 98.1 72 16 120/76 (91) 97 01/10/18 04:10 97.3 67 19 133/69 (90) 95 01/10/18 00:10 97.0 63 18 134/66 (88) 97 01/09/18 20:00 98.2 67 18 131/69 (89) 97 01/09/18 19:40 62 01/09/18 18:30 98.2 70 19 120/58 (78) 94 Room Air 01/09/18 18:15 68 19 121/57 (78) 97 Room Air 01/09/18 18:04 98.2 75 16 126/74 (91) 98 Simple Mask 6 01/09/18 17:00 01/09/18 16:00 97.9 67 18 126/62 (83) 01/09/18 12:00 97.2 68 18 118/59 (78) 01/09/18 11:50 95 01/09/18 09:27 I/O 01/09/18 01/09/18 01/09/18 01/10/18 01/10/18 01/10/18 07:00 15:00 23:00 07:00 15:00 23:00 Intake Total 1100 ml 0 ml 2150 ml 120 ml Output Total 200 ml Balance 900 ml 0 ml 2150 ml 120 ml Intake Oral 0 ml 0 ml 120 ml 120 ml IV Total 1100 ml 1880 ml Other 150 ml Output Urine Total 200 ml # Voids 1 3 1 3 # Bowel Movements 0 1 Result Diagram: 01/10/18 0610 01/10/18 0610 Imaging Last Impressions Chest X-Ray 01/08/18 0000 Signed Impressions: Service Date/Time: Monday, January 08, 2018 06:29 - CONCLUSION: 1. Mild basilar airspace disease with mild peribronchial thickening. Differential diagnosis includes mild bronchopneumonia and aspiration. No effusion. Minh Schaefer MD Objective Remarks General: Elderly male in no acute distress. In soft wrist restraints. Heart: Regular rate and rhythm. No murmur. Lungs: Breath sounds diminished in the bases. No wheezes, rales, or rhonchi. Breathing is nonlabored. Abdomen: Soft, nontender, nondistended. Extremities: No lower extremity edema. Psych: Alert, confused. Procedures 01/09/18 EGD Urinary Catheter: No Vascular Central Line Catheter: No A/P Problem List: (1) Coffee ground emesis ICD Code: K92.0 - Hematemesis Status: Acute (2) Aspiration pneumonia ICD Code: J69.0 - Pneumonitis due to inhalation of food and vomit Status: Acute (3) Dementia ICD Code: F03.90 - Dementia Status: Acute Assessment and Plan 1. GI bleed with coffee-ground emesis: H&H stable. Monitor H&H closely. Transfuse if necessary. Appreciate GI recommendations. S/P EGD, which showed gastritis, hiatal hernia. Change to oral Protonix. 2. Pneumonia: Possibly secondary to aspiration. Continue antibiotics ( vancomycin, Zosyn). Oxygen as needed. Currently stable on room air. 3. Hypertension: Monitor blood pressure. Antihypertensive medications on hold currently. Will restart if blood pressure increases. 4. Diabetes mellitus: Monitor Accu-Cheks and cover with sliding scale insulin. Hold oral hypoglycemic medications. 5. DVT prophylaxis: SCDs, LORETA vasqueze. Avoid chemical prophylaxis secondary to GI bleed. 6. Dementia, agitation: Patient has been requiring restraints as he has been trying to pull out his IV lines and has been combative with staff. Continue Aricept, Seroquel. 7. Lactic acidosis: Serum lactic acid level decreased. 8. PT eval. Discharge Planning Plan for return to SNF when stable. Problem Qualifiers (1) Aspiration pneumonia: Qualified Codes: J69.0 - Pneumonitis due to inhalation of food and vomit Luis Eduardo Lima MD Jan 10, 2018 09:11
[2018-01-10] MEDS: PANTOPRAZOLE SOD 40 MG DELAYED RELEASE TAB PO SCH ×2 (11:18→20:55)
[2018-01-10] MEDS ORDERED: PHARMACY ORDERED LAB ONE (11:45)
[2018-01-10] MEDS: VANCOMYCIN 1,500 MG/NS 500 ML IV SCH ×2 (12:43)
--- NOTE | 2018-01-10 13:25 | HHI.GIFU ---
Subjective Remarks Pt resting in bed, daughter at bedside. Remains confused, soft wrist restrains. Daughter is feeding him lunch. (Jailyn Sarmiento) Objective Vitals I&O Vital Signs Date Time Temp Pulse Resp B/P (MAP) Pulse Ox O2 Delivery O2 Flow Rate FiO2 01/10/18 12:00 97.7 73 16 140/67 (91) 99 01/10/18 08:00 98.1 72 16 120/76 (91) 97 01/10/18 04:10 97.3 67 19 133/69 (90) 95 01/10/18 00:10 97.0 63 18 134/66 (88) 97 01/09/18 20:00 98.2 67 18 131/69 (89) 97 01/09/18 19:40 62 01/09/18 18:30 98.2 70 19 120/58 (78) 94 Room Air 01/09/18 18:15 68 19 121/57 (78) 97 Room Air 01/09/18 18:04 98.2 75 16 126/74 (91) 98 Simple Mask 6 01/09/18 17:00 01/09/18 16:00 97.9 67 18 126/62 (83) I/O 01/09/18 01/09/18 01/09/18 01/10/18 01/10/18 01/10/18 07:00 15:00 23:00 07:00 15:00 23:00 Intake Total 1100 ml 0 ml 2150 ml 120 ml 1542 ml Output Total 200 ml Balance 900 ml 0 ml 2150 ml 120 ml 1542 ml Intake Oral 0 ml 0 ml 120 ml 120 ml IV Total 1100 ml 1880 ml 1542 ml Other 150 ml Output Urine Total 200 ml # Voids 1 3 1 3 # Bowel Movements 0 1 Laboratory Laboratory Tests Test 01/09/18 18:46 01/09/18 18:48 01/10/18 06:10 Hemoglobin 10.5 11.4 Hematocrit 29.4 32.6 Lactic Acid Level 0.8 White Blood Count 7.9 Red Blood Count 3.58 Mean Corpuscular Volume 91.1 Mean Corpuscular Hemoglobin 32.0 Mean Corpuscular Hemoglobin Concent 35.1 Red Cell Distribution Width 13.9 Platelet Count 180 Mean Platelet Volume 8.3 Neutrophils (%) (Auto) 80.5 Lymphocytes (%) (Auto) 11.4 Monocytes (%) (Auto) 4.9 Eosinophils (%) (Auto) 2.8 Basophils (%) (Auto) 0.4 Neutrophils # (Auto) 6.3 Lymphocytes # (Auto) 0.9 Monocytes # (Auto) 0.4 Eosinophils # (Auto) 0.2 Basophils # (Auto) 0.0 CBC Comment DIFF FINAL Differential Comment Blood Urea Nitrogen 15 Creatinine 0.95 Random Glucose 82 Calcium Level 8.2 Sodium Level 142 Potassium Level 3.6 Chloride Level 110 Carbon Dioxide Level 22.0 Anion Gap 10 Estimat Glomerular Filtration Rate 76 Vancomycin Level Trough 13.3 Date/Time Source Procedure Growth Status 01/08/18 08:51 Blood Peripheral Aerobic Blood Culture - Preliminary NO GROWTH IN 2 DAYS Resulted 01/08/18 08:51 Blood Peripheral Anaerobic Blood Culture - Preliminary NO GROWTH IN 2 DAYS Resulted 01/08/18 08:25 Nasal Washing Influenza Types A,B Antigen (TRENT) - Final NEGATIVE FOR FLU A AND B ANTIGEN.... Complete Imaging Last Impressions Chest X-Ray 01/08/18 0000 Signed Impressions: Service Date/Time: Monday, January 08, 2018 06:29 - CONCLUSION: 1. Mild basilar airspace disease with mild peribronchial thickening. Differential diagnosis includes mild bronchopneumonia and aspiration. No effusion. Minh Schaefer MD Physical Exam HEENT: Normocephalic; atraumatic CHEST: Even/unlabored CARDIAC: Irregularly irregular ABDOMEN: Soft, nondistended, bowel sounds active SKIN: Normal; no rash; no jaundice. EXECUTIVE COMPENSATION ANALYST: Awake (Jailyn Sarmiento COMMUNICATIONS SUPERVISOR) Assessment and Plan Plan Assessment - Coffee ground emesis per [place] staff- sent for evaluation- brown stool reported in ER, guaiac stool negative. Pts son at bedside, denies pt having history of GIB. States pt has never had EGD or colonoscopy. Pt on Xarelto for history of DVT and a-fib, last dosage received yesterday. H/H 12.3/34.8 on admission. VS stable. Currently on Pantoprazole drip EMANUEL Jesse Dewey (son) can be contacted at [phone] for consent (01/10) --> s/P EGD --> Small hiatal hernia. Mild gastritis. Biopsy pending. Improvement in H/H today, currently 11.4/32.6. Protonix gtt DCd, oral Protonix BID ordered. One BM documented today and yesterday Plan: Continue Protonix Biopsy pending No signs of continued bleeding GI will sign off, please reconsult as needed Pt has been seen and examined by myself and Dr. Barraza and this note is written on his behalf (Jailyn Sarmiento) Physician Comments patient seen and examined agree with above monitor labs continue present supportive care we will sign off (Arian Barraza MD) Jailyn Sarmiento Jan 10, 2018 13:24 Arian Barraza MD Jan 10, 2018 20:59
[2018-01-10] MEDS: DONEPEZIL HCL 5 MG TAB PO SCH (20:55)
[2018-01-11] VITALS (9 sets, daily range): BP systolic 135–150; BP diastolic 66–83; PULSE 59–103; RESP 18–19; TEMP 96.4–98.9; O2SAT 97–99
[2018-01-11] MEDS: PIPERACIL-TAZO 3.375 GM PREMIX 50 ML IV SCH ×3 (03:16→16:38)
[2018-01-11] MEDS: NS + KCL 20 MEQ INJ 1,000 ML IV SCH ×2 (04:50→16:24)
[2018-01-11] MEDS: INSULIN ASPART SUPPLEMENTAL SCALE SQ SCH ×4 (08:00→21:00)
[2018-01-11] MEDS: PANTOPRAZOLE SOD 40 MG DELAYED RELEASE TAB PO SCH ×2 (08:34→21:18)
[2018-01-11] MEDS: QUEtiapine FUMARATE 200 MG TAB PO SCH ×2 (08:34→21:18)
[2018-01-11] MEDS: DOCUSATE SODIUM 50 MG/SENNA 8.6 MG TAB PO SCH ×2 (08:36→21:19)
[2018-01-11] MEDS ORDERED: PHARMACY ORDERED LAB ONE (11:45)
[2018-01-11] MEDS: VANCOMYCIN 1,500 MG/NS 500 ML IV SCH ×2 (12:00)
--- NOTE | 2018-01-11 12:43 | HHI.DCPOC ---
Discharge Care Plan Diagnosis: (1) Dementia (2) Coffee ground emesis (3) Aspiration pneumonia Goals to Promote Your Health * To prevent worsening of your condition and complications * To maintain your health at the optimal level Directions to Meet Your Goals Take your medications as prescribed Follow your dietary instruction Follow activity as directed Keep your appointments as scheduled Take your immunizations and boosters as scheduled If your symptoms worsen call your PCP, if no PCP go to Urgent Care Center or Emergency Room Smoking is Dangerous to Your Health. Avoid second hand smoke Call the 24-hour hour crisis hotline for domestic abuse at Luis Eduardo Lima MD Jan 11, 2018 12:43
[2018-01-11] MEDS ORDERED: AMOX875T2 PO (12:46)
--- NOTE | 2018-01-11 12:51 | HHI.DS ---
Discharge Summary Admission Date Jan 08, 2018 at 07:48 Discharge Date: Jan 11, 2018 Admitting Diagnosis COFFEE GROUND EMESIS, ASPIRATION PNA (1) Coffee ground emesis ICD Code: K92.0 - Hematemesis Status: Acute (2) Aspiration pneumonia ICD Code: J69.0 - Pneumonitis due to inhalation of food and vomit Status: Acute (3) Dementia ICD Code: F03.90 - Dementia Status: Acute Procedures 01/09/18 EGD Brief History - From Admission The patient is an 82-year-old male who was sent from the group home facility following multiple episodes of coffee-ground emesis. There is concerned that he aspirated during the episodes of vomiting. The patient has advanced dementia and is unable to provide any history. He denies pain currently. He denies shortness of breath. Further history is obtained from discussion with the patient's son at bedside as well as review of the patient's chart. CBC/BMP: 01/10/18 0610 01/10/18 0610 Significant Findings Laboratory Tests Test 01/08/18 21:05 01/08/18 23:56 01/09/18 06:00 01/09/18 18:46 Hemoglobin 10.1 GM/DL (13.0-17.0) 10.8 GM/DL (13.0-17.0) 10.5 GM/DL (13.0-17.0) Hematocrit 28.6 % (39.0-51.0) 29.7 % (39.0-51.0) 29.4 % (39.0-51.0) Red Blood Count 3.23 MIL/MM3 (4.50-5.90) Mean Corpuscular Hemoglobin Concent 36.5 % (32.0-36.0) Platelet Count 141 TH/MM3 (150-450) Neutrophils (%) (Auto) 80.6 % (16.0-70.0) Neutrophils # (Auto) 7.8 TH/MM3 (1.8-7.7) Calcium Level 8.1 MG/DL (8.5-10.1) Chloride Level 112 MEQ/L (98-107) Estimat Glomerular Filtration Rate 65 ML/MIN (>89) Test 01/09/18 18:48 01/10/18 06:10 01/11/18 12:00 Red Blood Count 3.58 MIL/MM3 (4.50-5.90) Hemoglobin 11.4 GM/DL (13.0-17.0) Hematocrit 32.6 % (39.0-51.0) Neutrophils (%) (Auto) 80.5 % (16.0-70.0) Lymphocytes # (Auto) 0.9 TH/MM3 (1.0-4.8) Calcium Level 8.2 MG/DL (8.5-10.1) Chloride Level 110 MEQ/L (98-107) Estimat Glomerular Filtration Rate 76 ML/MIN (>89) Vancomycin Level Trough 13.3 MCG/ML (5.0-10.0) 11.2 MCG/ML (5.0-10.0) Imaging Last Impressions Chest X-Ray 01/08/18 0000 Signed Impressions: Service Date/Time: Monday, January 08, 2018 06:29 - CONCLUSION: 1. Mild basilar airspace disease with mild peribronchial thickening. Differential diagnosis includes mild bronchopneumonia and aspiration. No effusion. Minh Schaefer MD PE at Discharge General: Elderly male in no acute distress. In soft wrist restraints. Heart: Regular rate and rhythm. No murmur. Lungs: Breath sounds diminished in the bases. No wheezes, rales, or rhonchi. Breathing is nonlabored. Abdomen: Soft, nontender, nondistended. Extremities: No lower extremity edema. Psych: Alert, confused. Pt update on day of discharge The patient is confused. Still attempting to pull out IV, but not combative today per nursing. Per discussion with gastroenterology today, OK to restart Xarelto. Hospital Course The patient was admitted for management of GI bleed. Hemoglobin remained stable. Gastroenterology was consulted. Patient was continued on Protonix drip. He was continued on IV antibiotics for possible aspiration pneumonia. EGD showed small hiatal hernia and mild gastritis. Patient was transitioned to oral Protonix. He was cleared for discharge by gastroenterology. His respiratory status improved and he was stable on room air. He was felt to be stable for discharge back to group home facility. He did require restraints during the hospitalization as he was attempting to pull out his lines. At times he was combative as well, but that had improved by the day of discharge. Pt Condition on Discharge: Stable Discharge Disposition: Discharge to SNF Discharge Time: > 30 minutes Discharge Instructions DIET: Follow Instructions for: Heart Healthy Diet Speech Therapy-Diet Recommends: Pureed Activities you can perform: Regular-No Restrictions Follow up Referrals: Cardiology - 1 Week Gastroenterology - 1 Week with Arian Barraza MD PCP Follow-up - 2 Weeks New Medications: Amoxicillin-Clavulanate (Amoxicillin-Clavulanate) 875-125 mg Tab 875 MG PO BID for Infection, #14 TAB 0 Refills not for use in CrCl <30 mL/minute Pantoprazole (Pantoprazole) 40 Mg Tab 40 MG PO Q12HR for Reflux, #60 TAB 0 Refills Continued Medications: Amlodipine (Norvasc) 10 Mg Tab 10 MG PO DAILY for Blood Pressure Management, #30 TAB 0 Refills Donepezil (Aricept) 23 Mg Tab 10 MG PO HS, TAB Do not split, crushed or chewed. Furosemide (Furosemide) 20 Mg Tab 20 MG PO DAILY for health, #30 TAB 0 Refills Ondansetron Liq (Zofran Liq) 4 Mg/5 Ml Soln 4 MG PO Q8H PRN for NAUSEA OR VOMITING, ML 0 Refills Quetiapine (Seroquel) 200 Mg Tab 200 MG PO BID, #60 TAB 0 Refills Rivaroxaban (Xarelto) 15 Mg Tab 15 MG PO DAILY for health, #30 TAB 0 Refills [Potassium Cl 40 Meq/30 Ml Liq] () 40 MEQ/30 ML LIQD 20 MEQ PO DAILY for health, #1 BOTTLE 0 Refills Discontinued Medications: Metformin (Glucophage) 500 Mg Tab 500 MG PO BIDPC for health, #60 TAB 0 Refills Potassium Chloride ER (Potassium Chloride ER) 20 Meq Tab 20 MEQ PO DAILY for Electrolyte Replacement, #30 TAB 0 Refills Luis Eduardo Lima MD Jan 11, 2018 12:50
[2018-01-11] MEDS: DONEPEZIL HCL 5 MG TAB PO SCH (21:19)
[2018-01-12 00:40] VITALS: BP 124/63; PULSE 61; RESP 19; TEMP 96.9; O2SAT 96
[2018-01-12] MEDS: PIPERACIL-TAZO 3.375 GM PREMIX 50 ML IV SCH ×2 (02:28→12:08)
[2018-01-12 05:40] VITALS: BP 125/78; PULSE 57; RESP 19; TEMP 96.8; O2SAT 99
[2018-01-12] MEDS ORDERED: VANCOMYCIN 1,500 MG/NS 500 ML IV SCH ×2 (06:00)
[2018-01-12] MEDS: DOCUSATE SODIUM 50 MG/SENNA 8.6 MG TAB PO SCH (07:19)
[2018-01-12 08:00] VITALS: BP 111/66; PULSE 50; RESP 17; TEMP 95.3; O2SAT 99
[2018-01-12] MEDS: INSULIN ASPART SUPPLEMENTAL SCALE SQ SCH ×2 (08:00→12:00)
[2018-01-12] MEDS: PANTOPRAZOLE SOD 40 MG DELAYED RELEASE TAB PO SCH (08:37)
[2018-01-12] MEDS: QUEtiapine FUMARATE 200 MG TAB PO SCH (08:37)
[2018-01-12] MEDS: NS + KCL 20 MEQ INJ 1,000 ML IV SCH (08:40)
[2018-01-12] MEDS ORDERED: PANT40TA3 PO (11:22)
--- NOTE | 2018-01-12 11:36 | HHI.PR ---
Subjective Remarks The patient was comfortable. He seemed confused. He had no acute complaints. Discussed with nursing. Objective Vitals Vital Signs Date Time Temp Pulse Resp B/P (MAP) Pulse Ox O2 Delivery O2 Flow Rate FiO2 01/12/18 08:00 95.3 50 17 111/66 (81) 99 01/12/18 05:40 96.8 57 19 125/78 (94) 99 01/12/18 00:40 96.9 61 19 124/63 (83) 96 01/11/18 20:50 96.7 59 18 142/66 (91) 99 01/11/18 20:00 62 01/11/18 16:17 98.9 70 18 141/83 (102) 97 01/11/18 15:45 76 01/11/18 11:44 98.6 103 18 150/79 (102) 97 I/O 01/11/18 01/11/18 01/11/18 01/12/18 01/12/18 01/12/18 07:00 15:00 23:00 07:00 15:00 23:00 Intake Total 120 ml 565 ml 1480 ml 170 ml Balance 120 ml 565 ml 1480 ml 170 ml Intake Oral 120 ml 240 ml 120 ml IV Total 565 ml 1240 ml 50 ml # Voids 2 2 2 4 # Bowel Movements 2 2 0 1 Result Diagram: 01/10/18 0610 01/10/18 0610 Imaging Last Impressions Chest X-Ray 01/08/18 0000 Signed Impressions: Service Date/Time: Monday, January 08, 2018 06:29 - CONCLUSION: 1. Mild basilar airspace disease with mild peribronchial thickening. Differential diagnosis includes mild bronchopneumonia and aspiration. No effusion. Minh Schaefer MD Objective Remarks General: Elderly male in no acute distress. Heart: Regular rate and rhythm. No murmur. Lungs: Breath sounds diminished in the bases. No wheezes, rales, or rhonchi. Breathing is nonlabored. Abdomen: Soft, nontender, nondistended. Extremities: No lower extremity edema. Psych: Alert, confused. Procedures 01/09/18 EGD Medications and IVs Current Medications Medications (Trade) Dose Ordered Sig/Roland Route Start Time Stop Time Status Last Admin (NS Flush) 2 ml UNSCH PRN IVF 01/08/18 05:45 (Tylenol) 650 mg Q4H PRN PO 01/08/18 07:45 (Zofran Inj) 4 mg Q6H PRN IVP 01/08/18 07:45 (Narcan Inj) 0.4 mg UNSCH PRN IV PUSH 01/08/18 07:45 (Nayely-Colace) 1 tab BID PO 01/08/18 09:00 01/11/18 21:19 (Milk Of Magnesia Liq) 30 ml Q12H PRN PO 01/08/18 07:45 (Senokot) 17.2 mg Q12H PRN PO 01/08/18 07:45 (Dulcolax Supp) 10 mg DAILY PRN RECTAL 01/08/18 07:45 (Lactulose Liq) 30 ml DAILY PRN PO 01/08/18 07:45 Potassium Chloride/Sodium Chloride 1,000 ml @ 84 mls/hr [id number] IV 01/08/18 08:00 01/12/18 08:40 (Aricept) 10 mg HS PO 01/08/18 21:00 01/11/18 21:19 (SEROquel) 200 mg BID PO 01/08/18 21:00 01/12/18 08:37 Piperacillin Sod/ Tazobactam Sod 50 ml @ 100 mls/hr Q8H IV 01/08/18 11:00 01/12/18 02:28 Pharmacy Profile Note 0 ml @ 0 mls/hr UNSCH OTHER 01/08/18 10:15 (D50w (Vial) Inj) 50 ml UNSCH PRN IV PUSH 01/09/18 08:15 (Glucagon Inj) 1 mg UNSCH PRN OTHER 01/09/18 08:15 (NovoLOG SUPPLEMENTAL SCALE) 1 ACHS SLIDING SCALE SQ 01/09/18 12:00 (Protonix) 40 mg Q12HR PO 01/10/18 09:15 01/12/18 08:37 Vancomycin HCl 1500 mg/Sodium Chloride 515 ml @ 257.5 mls/ hr Q18H IV 01/12/18 06:00 01/12/18 05:06 Miscellaneous Information SPECIFIC LAB TO BE DRAWN:VANCO TROUGH DATE TO... ONCE ONCE .XX 01/14/18 11:45 01/14/18 11:46 A/P Problem List: (1) Coffee ground emesis ICD Code: K92.0 - Hematemesis Status: Acute (2) Aspiration pneumonia ICD Code: J69.0 - Pneumonitis due to inhalation of food and vomit Status: Acute (3) Dementia ICD Code: F03.90 - Dementia Status: Acute Assessment and Plan 1. GI bleed with coffee-ground emesis: H&H stable. Monitor H&H closely. Transfuse if necessary. Appreciate GI recommendations. S/P EGD, which showed gastritis, hiatal hernia. Change to oral Protonix BID. Outpatient follow-up with GI. 2. Pneumonia: Possibly secondary to aspiration. Continue antibiotics ( vancomycin, Zosyn). Switch to Augmentin upon discharge. Oxygen as needed. Currently stable on room air. 3. Hypertension: Monitor blood pressure. Antihypertensive medications on hold currently. Will restart upon discharge. 4. Diabetes mellitus: Monitor Accu-Cheks and cover with sliding scale insulin. Hold oral hypoglycemic medications. Recent A1c was 5.5%. 5. DVT prophylaxis: SCDs, LORETA [place]. Avoid chemical prophylaxis secondary to GI bleed. 6. Dementia, agitation: Patient has been requiring restraints as he has been trying to pull out his IV lines and has been combative with staff. Continue Aricept, Seroquel. 7. Lactic acidosis: Serum lactic acid level decreased. 8. PT eval. Discharge Planning Discharged to SNF Problem Qualifiers (1) Aspiration pneumonia: Qualified Codes: J69.0 - Pneumonitis due to inhalation of food and vomit Issa Schwab DO Jan 12, 2018 11:36
[2018-01-12 16:00] VITALS: PULSE 60
[2018-01-14] MEDS ORDERED: PHARMACY ORDERED LAB ONE (11:45)
== END 2018-01-12 15:44 | DRG 377 ==
LOC: NEPC 05:28 → NEDA 07:48 → OBSVTOIN 07:48 → N06A 09:08
PROVIDERS: ADMIT Hospitalist; ATTEND Hospitalist
PROC: 0DB68ZX Excision of Stomach, Via Natural or Artificial Opening Endoscopic, Diagnostic (ICD-10-PCS; principal; 2018-01-09 17:35)
DX: K92.0 Hematemesis (principal); J69.0 Pneumonitis due to inhalation of food and vomit; E87.2 Acidosis; F03.90 Unspecified dementia, unspecified severity, without behavioral disturbance, psychotic disturbance, mood disturbance, and anxiety; E11.9 Type 2 diabetes mellitus without complications; Z79.84 Long term (current) use of oral hypoglycemic drugs; D64.9 Anemia, unspecified; I10 Essential (primary) hypertension; K29.70 Gastritis, unspecified, without bleeding; Z78.1 Physical restraint status; I48.91 Unspecified atrial fibrillation; Z86.718 Personal history of other venous thrombosis and embolism; Z79.02 Long term (current) use of antithrombotics/antiplatelets; K44.9 Diaphragmatic hernia without obstruction or gangrene; E78.5 Hyperlipidemia, unspecified
CPT/HCPCS: 71046; 80048; 80053; 80202; 81001; 82948; 83605; 83690; 85014; 85018; 85025; 85610; 86850; 86900; 86901; 87040; 87804; 88305; 88312; 93005; C9113; J0330; J0456; J0696; J2543; J3370; J3480; J7040; J7050

== ENCOUNTER 2018-05-28 08:28 | Observation (INO) ==
[2018-05-30] MEDS ORDERED: Acetaminophen 325 MG Tablet PO PRN (02:05)
[2018-05-30] MEDS ORDERED: Bisacodyl 10 MG Supp RECTAL PRN (02:06)
[2018-05-30] MEDS ORDERED: Haloperidol Inj 5 MG/ML Ampul IM PRN (02:09)
[2018-05-30] MEDS ORDERED: Naloxone Inj 0.4 MG/ML Vial IV.PUSH PRN (02:16)
[2018-05-30] MEDS: Furosemide 20 MG Tablet PO SCH (08:12)
[2018-05-30] MEDS: amLODIPine 10 MG Tablet PO SCH (08:12)
[2018-05-30] MEDS: Haloperidol Lactate Oral Conc 10 MG/5 ML UDC PO SCH ×3 (08:12→18:38)
[2018-05-30] MEDS: Pantoprazole Inj 80 MG in Sodium Chlor 0.9% Inj 100 ML IV.SIG SCH (10:13)
[2018-05-30] MEDS: Senna/Docusate Sodium 8.6/50 MG Tablet PO SCH ×2 (10:14→21:30)
--- NOTE | 2018-05-30 14:46 | P.PNGI ---
Subjective Interval history: Patient is in the bed but gets up ambulatory at times Denies any coffee-ground emesis. Nausea or vomiting No abdominal pain Afebrile <Charity Medley - Last Filed: 05/30/18 15:01> Physical Exam Vital signs: Vital Signs 05/30/18 08:00 05/30/18 12:00 Temperature 97.3 F L 97.9 F Pulse Rate 63 62 Respiratory Rate 20 21 Blood Pressure 148/90 H 134/99 H Pulse Oximetry 100 100 Intake & Output 05/29/18 05/30/18 05/30/18 18:59 06:59 18:59 Intake Total 180 / 180 Balance 180 / 180 Weight 75 kg Intake: Oral 180 / 180 - Constitutional no acute distress - Routine HEENT Exam Head: Present: normocephalic, atraumatic Eye: Present: EOMI ENT: Present: mucous membranes moist - Routine Neck Exam Present: supple - Routine Respiratory Exam Present: accessory muscle use (Mild) - Routine Cardiovascular Exam Present: RRR, S1, S2 - Routine Abdominal Exam Present: soft, normoactive bowel sounds - Detailed Abdominal Exam Abdominal exam hernia: Absent: epigastric, incisional, incarcerated, reducible Comments: Denies any abdominal pain abdomen is soft, no coffee-ground emesis noticed - Routine Extremities Exam Present: full ROM (Up ambulating, thin body build, moves extremities with purpose) - Routine Skin Exam Present: intact - Routine Neurological Exam Present: normal speech (Understandable) - Detailed Neurological Exam: Coma Scale Eye Opening: Spontaneous Verbal Response: Oriented (to symptoms and basic information) <Charity Medley - Last Filed: 05/30/18 15:01> Vital signs: Vital Signs 05/30/18 08:00 05/30/18 12:00 Temperature 97.3 F L 97.9 F Pulse Rate 63 62 Respiratory Rate 20 21 Blood Pressure 148/90 H 134/99 H Pulse Oximetry 100 100 Intake & Output 05/29/18 05/30/18 05/30/18 18:59 06:59 18:59 Intake Total 180 / 180 Balance 180 / 180 Weight 75 kg Intake: Oral 180 / 180 <Nicole Hernandez - Last Filed: 05/30/18 16:54> Results - Labs CBC & Chem 7: 05/29/18 06:20 05/29/18 06:20 Labs: Laboratory Results - last 24 hr 05/28/18 05/28/18 05/28/18 06:32 06:32 06:32 WBC 5.8 RBC 4.06 L Hgb 12.5 L Hct 36.7 L MCV 90.4 MCH 30.8 MCHC 34.0 RDW 14.4 Plt Count 210 MPV 7.9 Neut % (Auto) 82.5 H Lymph % (Auto) 9.7 [place] % (Auto) 4.1 Eos % (Auto) 3.3 Baso % (Auto) 0.4 Neut # (Auto) 4.8 Lymph # (Auto) 0.6 L [place] # (Auto) 0.2 Eos # (Auto) 0.2 Baso # (Auto) 0.0 CBC Comment DIFF FINAL PT 11.6 INR 1.1 APTT 30.7 H Sodium 143 Potassium 3.9 Chloride 110 H Carbon Dioxide 23.2 Anion Gap 10 BUN 26 H Creatinine 1.17 Estimated GFR 60 L Random Glucose 151 H Calcium 8.8 Total Bilirubin 0.4 AST 9 L ALT 11 L Alkaline Phosphatase 92 Total Protein 7.2 Albumin 3.7 Lipase 163 05/29/18 05/29/18 06:20 06:20 WBC 9.3 D RBC 3.54 L Hgb 11.0 L Hct 31.6 L MCV 89.4 MCH 31.0 MCHC 34.7 RDW 14.1 Plt Count 188 MPV 8.1 Neut % (Auto) 84.1 H Lymph % (Auto) 7.8 L [place] % (Auto) 4.6 Eos % (Auto) 3.0 Baso % (Auto) 0.5 Neut # (Auto) 7.8 H Lymph # (Auto) 0.7 L [place] # (Auto) 0.4 Eos # (Auto) 0.3 Baso # (Auto) 0.0 CBC Comment DIFF FINAL PT INR APTT Sodium 143 Potassium 3.9 Chloride 112 H Carbon Dioxide 23.6 Anion Gap 7 BUN 17 Creatinine 1.12 Estimated GFR 63 L Random Glucose 119 H Calcium 8.1 L Total Bilirubin 0.9 AST 8 L ALT 9 L Alkaline Phosphatase 84 Total Protein 6.4 D Albumin 3.1 L D Lipase <Charity Medley - Last Filed: 05/30/18 15:01> - Labs CBC & Chem 7: 05/29/18 06:20 05/29/18 06:20 Labs: Laboratory Results - last 24 hr 05/28/18 05/28/18 05/28/18 06:32 06:32 06:32 WBC 5.8 RBC 4.06 L Hgb 12.5 L Hct 36.7 L MCV 90.4 MCH 30.8 MCHC 34.0 RDW 14.4 Plt Count 210 MPV 7.9 Neut % (Auto) 82.5 H Lymph % (Auto) 9.7 [place] % (Auto) 4.1 Eos % (Auto) 3.3 Baso % (Auto) 0.4 Neut # (Auto) 4.8 Lymph # (Auto) 0.6 L [place] # (Auto) 0.2 Eos # (Auto) 0.2 Baso # (Auto) 0.0 CBC Comment DIFF FINAL PT 11.6 INR 1.1 APTT 30.7 H Sodium 143 Potassium 3.9 Chloride 110 H Carbon Dioxide 23.2 Anion Gap 10 BUN 26 H Creatinine 1.17 Estimated GFR 60 L Random Glucose 151 H Calcium 8.8 Total Bilirubin 0.4 AST 9 L ALT 11 L Alkaline Phosphatase 92 Total Protein 7.2 Albumin 3.7 Lipase 163 05/29/18 05/29/18 06:20 06:20 WBC 9.3 D RBC 3.54 L Hgb 11.0 L Hct 31.6 L MCV 89.4 MCH 31.0 MCHC 34.7 RDW 14.1 Plt Count 188 MPV 8.1 Neut % (Auto) 84.1 H Lymph % (Auto) 7.8 L [place] % (Auto) 4.6 Eos % (Auto) 3.0 Baso % (Auto) 0.5 Neut # (Auto) 7.8 H Lymph # (Auto) 0.7 L [place] # (Auto) 0.4 Eos # (Auto) 0.3 Baso # (Auto) 0.0 CBC Comment DIFF FINAL PT INR APTT Sodium 143 Potassium 3.9 Chloride 112 H Carbon Dioxide 23.6 Anion Gap 7 BUN 17 Creatinine 1.12 Estimated GFR 63 L Random Glucose 119 H Calcium 8.1 L Total Bilirubin 0.9 AST 8 L ALT 9 L Alkaline Phosphatase 84 Total Protein 6.4 D Albumin 3.1 L D Lipase <Nicole Hernandez - Last Filed: 05/30/18 16:54> Assessment and Plan (1) Coffee ground emesis Status: Acute Code(s): K92.0 - Hematemesis (2) Coffee ground vomiting Status: Acute Code(s): K92.0 - Hematemesis <Charity Medley - Last Filed: 05/30/18 15:01> (1) Coffee ground emesis Status: Acute Code(s): K92.0 - Hematemesis (2) Coffee ground vomiting Status: Acute Code(s): K92.0 - Hematemesis - Plan EGD planned for tomorrow - Attending Attestation The exam, history, and the medical decision-making described in the above note were completed with the assistance of the mid-level provider. I reviewed and agree with the findings presented. I attest that I had a [id number] encounter with the patient on the same day, and personally performed and documented my assessment and findings in the medical record. <Nicole Hernandez - Last Filed: 05/30/18 16:54> Assessment and Plan - Assessment (1) Coffee ground emesis Code(s): K92.0 - Hematemesis Status: Acute (2) Coffee ground vomiting Code(s): K92.0 - Hematemesis Status: Acute - Plan 82-year-old male in with upper GI bleed probably secondary to his Xarelto on admission currently Xarelto has been held and patient has no further obvious bleeding Anemia current hemoglobin 11. , no obvious bleeding now but will need to continue to monitor INR 1.1 normal coagulopathy No elevation in LFTs, low normal Currently patient denies any acute GI symptoms and is resting comfortably. After EGD can advise on coagulopathy at that time and treatment regimen. Plan Consent for EGD Thursday Patient tolerating full liquids for now, n.p.o. at midnight Monitor labs with special attention hemoglobin Supportive care Further recommendations to follow after EGD results Patient was seen per myself and Dr. Hernandez, this note was written on his behalf <Charity Medley - Last Filed: 05/30/18 15:01> - Assessment (1) Coffee ground emesis Code(s): K92.0 - Hematemesis Status: Acute (2) Coffee ground vomiting Code(s): K92.0 - Hematemesis Status: Acute <Nicole Hernandez Last Filed: 05/30/18 16:54>
--- NOTE | 2018-05-30 23:37 | P.PNIM ---
Subjective Interval history: Late entry the patient was seen early in the morning today. He is more awake and alert, he is less agitated. And no bleeding overnight. He is pleasantly confused. Denies any abdominal pain. Eating fairly well no appetite. No fever or chills. No abdominal pain. Physical Exam Vital signs: Vital Signs 05/30/18 08:00 05/30/18 12:00 05/30/18 16:00 Temperature 97.3 F L 97.9 F 98 F Pulse Rate 63 62 71 Respiratory Rate 20 21 20 Blood Pressure 148/90 H 134/99 H 145/71 H Pulse Oximetry 100 100 98 05/30/18 20:00 Temperature Pulse Rate Respiratory Rate 16 Blood Pressure Pulse Oximetry Intake & Output 05/30/18 05/30/18 05/31/18 06:59 18:59 06:59 Intake Total 180 / 180 Balance 180 / 180 Intake: Oral 180 / 180 Narrative: GENERAL: This is an elderly male, pleasantly confused, with dementia well- nourished, well-developed patient, less agitated. CARDIOVASCULAR: Regular rate and rhythm without murmurs, gallops, or rubs. RESPIRATORY: Clear to auscultation. Breath sounds equal bilaterally. No wheezes. GASTROINTESTINAL: Abdomen soft, non-tender, nondistended. No hepato-splenomegaly , or palpable masses. No guarding. MUSCULOSKELETAL: Extremities without clubbing, cyanosis, or edema. No joint tenderness, effusion, or edema noted. Results - Labs CBC & Chem 7: 05/29/18 06:20 05/29/18 06:20 Assessment and Plan - Plan Upper GI bleed 2/2 active bleeding from Esophagitis with MW tear with clot, oozing blood. S/P EGD 05/28/18 : Esophagitis with MW tear with clot , oozing blood. Received 3 cc of epinephrine injected and cauterized with gold probe. Continue Hold Xarelto. Pt had similar presentation in Dec. and was evaluated by our GI services. EGD 01/09/18 Small hiatal hernia. Mild gastritis, Bx was benign. H/H 12.5/36.7 on admission, PPI Gtt GI consulted, ff Monitor H/H, transfuse if hemoglobin less than 7 or if the patient is symptomatic Protonix gtt Possible repeat EGD on Thursday per GI recommendations Dementia with aggressive behavior and acute exacerbation. Requiring soft restraints. Continue home meds. Add haldol and ativan. Consult psych for further eval and management. Chronic medical problems appears stable at this time: Atrial fibrillation, hyperlipidemia, DM2. Continue home medications as appropriate. Hold Xarelto patient with GI bleed. DVT ppx : SCD/teds. Chemical prophylaxis contraindicated as patient with active GI bleed Discussed Condition With Patient, nurse, daughter at bedside Case management also is consulted and is following. Case management also spoke with the daughters per daughter's she wants to take her father in [place] to a group home facility there. Arrangements are already done her Odette his daughter. This is [place] case management also spoke with the daughter regarding transportation at the time of discharge. Discharge plan. Patient might need repeat EGD on Thursday 05/31 71 per GI. Discharge when cleared by the GI. Plan to go to group home facility in [place]. Case management following. Daughter Odette who is the power of insurance defense attorney is very active in his care and very supportive.
[2018-05-31 07:39] LABS: Baso % (Auto) 0.4 % (0.0-2.0); Eos # (Auto) 0.3 th/mm3 (0.0-0.4); Eos % (Auto) 5.4 % (0.0-4.0); Hemoglobin 12.7 gm/dL (13.0-17.0); Lymph % (Auto) 16.2 % (9.0-44.0); Mean Corpuscular HGB Conc 34.2 % (32.0-36.0); Mean Corpuscular Hemoglobin 30.4 pg (27.0-34.0); Mean Corpuscular Volume 88.8 fL (80.0-100.0); Mean Platelet Volume 7.8 fL (7.0-11.0); Mono # (Auto) 0.4 th/mm3 (0.0-0.9); Mono % (Auto) 5.7 % (0.0-8.0); Neut # (Auto) 4.5 th/mm3 (1.8-7.7); Neut % (Auto) 72.3 % (16.0-70.0); Platelet Count 239 th/mm3 (150-450); Red Blood Count 4.17 mil/mm3 (4.50-5.90); Red Cell Distribution Width 13.9 % (11.6-17.2); White Blood Count 6.2 th/mm3 (4.0-11.0)
[2018-05-31 07:59] LABS: Calcium 8.7 mg/dL (8.5-10.1); Potassium 3.5 meq/L (3.5-5.1)
[2018-05-31] MEDS: Pantoprazole Inj 80 MG in Sodium Chlor 0.9% Inj 100 ML IV.SIG SCH ×4 (08:02→17:30)
[2018-05-31] MEDS: Furosemide 20 MG Tablet PO SCH (08:13)
[2018-05-31] MEDS: amLODIPine 10 MG Tablet PO SCH (08:13)
[2018-05-31] MEDS: Senna/Docusate Sodium 8.6/50 MG Tablet PO SCH ×2 (08:14→22:32)
[2018-05-31] MEDS: Haloperidol Lactate Oral Conc 10 MG/5 ML UDC PO SCH ×3 (08:51→17:30)
--- NOTE | 2018-05-31 10:08 | P.PNIM ---
Subjective Interval history: Pt had no complains when I evaluated him earlier this morning. was confused. Calm, not agitated. He didn't know his name or where he was. Dark stools noted. Denies any nausea or vomiting discussed w RN, pt scheduled for EGD today. Physical Exam Vital signs: Vital Signs 05/30/18 12:00 05/30/18 16:00 05/30/18 20:00 Temperature 97.9 F 98 F Pulse Rate 62 71 Respiratory Rate 21 20 16 Blood Pressure 134/99 H 145/71 H Pulse Oximetry 100 98 05/31/18 08:30 Temperature 97.8 F Pulse Rate 70 Respiratory Rate 16 Blood Pressure 138/65 Pulse Oximetry 100 Intake & Output 05/30/18 05/31/18 05/31/18 18:59 06:59 18:59 Intake Total 180 / 180 Balance 180 / 180 Intake: Oral 180 / 180 Narrative: Patient laying in bed, gown not in place CVS: Heart rate regular with no murmurs Lungs: Clear to auscultation no wheezing Abdomen: Soft, nontender, no guarding Moving extremities Neuro: Confused, is not oriented to self or place or time. However he is calm and pleasant Results - Labs CBC & Chem 7: 05/31/18 06:10 05/31/18 06:10 Laboratory Results - last 24 hr 05/31/18 05/31/18 06:10 06:10 WBC 6.2 RBC 4.17 L Hgb 12.7 L Hct 37.0 L MCV 88.8 MCH 30.4 MCHC 34.2 RDW 13.9 Plt Count 239 MPV 7.8 Neut % (Auto) 72.3 H Lymph % (Auto) 16.2 [place] % (Auto) 5.7 Eos % (Auto) 5.4 H Baso % (Auto) 0.4 Neut # (Auto) 4.5 Lymph # (Auto) 1.0 [place] # (Auto) 0.4 Eos # (Auto) 0.3 Baso # (Auto) 0.0 WBC Differential . Differential Comment Auto diff final Sodium 142 Potassium 3.5 Chloride 108 H Carbon Dioxide 24.0 Anion Gap 10 BUN 14 Creatinine 0.99 Estimated GFR 73 L Random Glucose 113 H Calcium 8.7 Assessment and Plan - Assessment (1) Coffee ground emesis Code(s): K92.0 - Hematemesis Status: Acute - Plan Upper GI bleed 2/2 active bleeding from Esophagitis with MW tear with clot, oozing blood. S/P EGD 05/28/18 : Esophagitis with MW tear with clot , oozing blood. Received 3 cc of epinephrine injected and cauterized with gold probe. Continue to hold Xarelto. Pt had similar presentation in Dec. and was evaluated by our GI services. EGD 01/09/18 Small hiatal hernia. Mild gastritis, Bx was benign. Currently on a Protonix drip which was started today. GI following and patient scheduled to go for EGD this morning. Monitor H/H, transfuse if hemoglobin less than 7 or if the patient is symptomatic. Hemoglobin this morning was 12.7 Dementia with aggressive behavior and acute exacerbation. He did require soft restraints. Continue home meds. On Haldol and ativan as needed. Psychiatry consult pending Chronic medical problems appears stable at this time: Atrial fibrillation, hyperlipidemia, DM2. Continue home medications as appropriate. Hold Xarelto for patient with GI bleed. DVT ppx : SCD/teds. Chemical prophylaxis contraindicated as patient with active GI bleed Case management following. Pt's daughter wants to take her father in [place] to a fci facility there. Arrangements are already done her Odette his daughter. Discharge plan. Discharge when cleared by the GI. Plan to go to fci facility in [place]. Case management assisting w d/c plans
--- NOTE | 2018-05-31 14:59 | GIPROC ---
[facility] [address] [facility]. [facility], [address] EGD PROCEDURE REPORT EXAM DATE: 05/31/2018 PATIENT NAME: Amari Dewey MR #: [id number] BIRTHDATE: 1935 ATTENDING: Abigail Vo MD ORDER #: [id number] PHOTOGRAPHER APPRENTICE LITHOGRAPHIC: Felix Arrieta and Rhoda Sylvester STATUS: inpatient INDICATIONS: The patient is a 82 yr old male here for an EGD due to gi bleeding PROCEDURE PERFORMED: EGD w/ biopsy MEDICATIONS: None and Per Anesthesia. TOPICAL ANESTHETIC: none CONSENT: The patient understands the risks and benefits of the procedure and understands that these risks include, but are not limited to: sedation, allergic reaction, infection, perforation and/or bleeding. Alternative means of evaluation and treatment include, among others: physical exam, x-rays, and/or surgical intervention. The patient elects to proceed with this endoscopic procedure. medical equipment was checked for proper function. Hand hygiene and appropriate measures for infection prevention was taken. After the risks, benefits and alternatives of the procedure were thoroughly explained, Informed consent was verified, confirmed and timeout was successfully executed by the treatment team. The patient was anesthetized with topical anesthesia and the Pentax EG-[id number] endoscope was introduced through the mouth and advanced to the second portion of the duodenum. Retroflexed views revealed a hiatal hernia The gastroscope was then slowly withdrawn and removed. Gastritis antrum-biopsy esophagitis distal esophagus-biopsy MW tear- healed retroflexion-hiatal hernia. ADVERSE EVENTS: There were no complications. IMPRESSIONS: 1. Gastritis antrum-biopsy esophagitis distal esophagus-biopsy MW tear- healed retroflexion-hiatal hernia 2. Retroflexed views revealed a hiatal hernia RECOMMENDATIONS: 1. Await biopsy results. Biopsy results will not be ready for 7-10 days. If you don't hear from us in two weeks, call our office for biopsy results. 2. Anti-reflux regimen 3. Avoid NSAIDS 4. Soft diet ok to restart anticoagulation from gi point PATIENT CONDITION: stable DISPOSITION: Inpatient REPEAT EXAM: Return 3 months EGD Abigail Vo MD eSigned: Abigail Vo MD 05/31/2018 2:59 PM cc: PATIENT NAME: Amari Dewey MR#: [id number]
[2018-06-01] MEDS: Pantoprazole Inj 80 MG in Sodium Chlor 0.9% Inj 100 ML IV.SIG SCH ×2 (05:40→11:43)
[2018-06-01] MEDS: amLODIPine 10 MG Tablet PO SCH (09:48)
[2018-06-01] MEDS: Haloperidol Lactate Oral Conc 10 MG/5 ML UDC PO SCH ×2 (09:48→14:06)
[2018-06-01] MEDS: Furosemide 20 MG Tablet PO SCH (09:48)
[2018-06-01] MEDS: Senna/Docusate Sodium 8.6/50 MG Tablet PO SCH (09:49)
[2018-06-01 10:49] LABS: Baso % (Auto) 0.4 % (0.0-2.0); Eos % (Auto) 0.6 % (0.0-4.0); Hematocrit 35.6 % (39.0-51.0); Hemoglobin 12.4 gm/dL (13.0-17.0); Lymph # (Auto) 0.7 th/mm3 (1.0-4.8); Lymph % (Auto) 10.3 % (9.0-44.0); Mean Corpuscular HGB Conc 34.7 % (32.0-36.0); Mean Corpuscular Hemoglobin 30.6 pg (27.0-34.0); Mean Platelet Volume 7.6 fL (7.0-11.0); Mono # (Auto) 0.3 th/mm3 (0.0-0.9); Mono % (Auto) 4.6 % (0.0-8.0); Neut # (Auto) 5.5 th/mm3 (1.8-7.7); Neut % (Auto) 84.1 % (16.0-70.0); Platelet Count 268 th/mm3 (150-450); Red Blood Count 4.05 mil/mm3 (4.50-5.90); Red Cell Distribution Width 13.9 % (11.6-17.2); White Blood Count 6.6 th/mm3 (4.0-11.0)
--- NOTE | 2018-06-01 11:19 | P.PNGI ---
Subjective Interval history: Pt resting in bed, sitter at bedside. Pt is not oriented and can not provide history. Discussed with RN, states pt has had BM, normal. Reports no continued emesis. Pt in no apparent distress. Physical Exam Vital signs: Vital Signs 05/31/18 15:01 05/31/18 17:21 05/31/18 20:00 Temperature 97 F L 97.7 F Pulse Rate 74 71 Respiratory Rate 20 18 21 Blood Pressure 108/65 161/72 H Pulse Oximetry 100 100 06/01/18 07:45 Temperature 98.0 F Pulse Rate 78 Respiratory Rate 16 Blood Pressure 149/69 H Pulse Oximetry 99 Intake & Output 05/31/18 06/01/18 06/01/18 18:59 06:59 18:59 Intake Total 400 / 400 100 / 100 200 / 200 Balance 400 / 400 100 / 100 200 / 200 Weight 75 kg 75 kg Intake: IV 100 / 100 100 / 100 Protonix Inj 80 MG In NS Inj 100 / 100 100 / 100 100 ML @ 10 mls/hr IV.SIG .Q10H [facility] Rx#:[id number] Oral 200 / 200 Anesthesia Amount 300 / 300 Other: Date of Last Bowel Movement 05/31/18 05/31/18 # Bowel Movements 2 # Incontinent Bowel Movements 2 Weight On Admission 75 kg - Constitutional no acute distress - Routine HEENT Exam Head: Present: normocephalic, atraumatic - Routine Respiratory Exam Absent: accessory muscle use - Routine Abdominal Exam Present: soft, normoactive bowel sounds. Absent: tenderness, distended, rebound - Routine Neurological Exam Present: alert. Absent: oriented X3 - Detailed Neurological Exam: Coma Scale Eye Opening: Spontaneous Verbal Response: Confused Motor Response: Localizing [place] Coma Scale Total: 13 Results - Labs CBC & Chem 7: 06/01/18 09:59 05/31/18 06:10 Laboratory Results - last 24 hr 06/01/18 09:59 WBC 6.6 RBC 4.05 L Hgb 12.4 L Hct 35.6 L MCV 88.0 MCH 30.6 MCHC 34.7 RDW 13.9 Plt Count 268 MPV 7.6 Neut % (Auto) 84.1 H Lymph % (Auto) 10.3 [place] % (Auto) 4.6 Eos % (Auto) 0.6 Baso % (Auto) 0.4 Neut # (Auto) 5.5 Lymph # (Auto) 0.7 L [place] # (Auto) 0.3 Eos # (Auto) 0.0 Baso # (Auto) 0.0 WBC Differential . Differential Comment Auto diff final Assessment and Plan (1) Coffee ground emesis Status: Acute Code(s): K92.0 - Hematemesis (2) Coffee ground vomiting Status: Acute Code(s): K92.0 - Hematemesis - Plan Assessment: - Coffee ground emesis witnessed by NH staff- sent to ER for further evaluation. Pt has advanced dementia and is unable to provide any history. Pt has a-fib and is on Xarelto. No reports of abdominal pain, melena, or hematochezia EGD (05/31) --> Gastritis antrum, biopsy taken. Esophagitis in the distal esophagus, biopsy taken. Ledy-Grande tear- healed. Hiatal hernia. (06/01) Per RN, pt had a normal BM. No further episode of emesis. States he has not been eating much but has been tolerating what he is eating. H/H remains stable. Plan: Continue Omeprazole at DC Avoid NSAIDs Soft Diet Ok to restart Xarelto from a GI standpoint GI will sign off Have pt follow up with GI in 1-2 weeks Pt has been seen and examined by myself and Dr. Vo and this note is written on her behalf
[2018-06-01 12:47] VITALS: BP 121/57; PULSE 86; RESP 16; TEMP 98.8; O2SAT 96
--- NOTE | 2018-06-01 13:02 | P.DS ---
Date of admission: 05/28/18 08:29 Primary care physician: Yakelin Montilla MD Brief History from admission: This is a pleasantly confused 82 year old M with medical history significant for anemia, atrial fibrillation on Xarelto, hyperlipidemia, DM, and dementia who was sent to [facility] [place] for several episodes of coffee ground emesis earlier today. Pt is confused, not able to provide meaningful conversation, Pt is on Xarelto for a few. Pt had similar presentation in Dec. and was evaluated by our GI services. EGD 01/09/18 Small hiatal hernia. Mild gastritis, Bx was benign. Daughter by bed side, agreeing to have EGD done. H/H 12.5/36.7 on admission. No reported abd pain, melena or hematochezia. He was not vomiting blood in the emergency room on admission. Pleasantly confused does not have any concerns at this time. However he is noted agitated on and off. DS: Diagnosis - Discharge Diagnosis (1) Coffee ground emesis Status: Acute DS: Summary Hospital Course: pt was admitted for Upper GI bleed 2/2 active bleeding from Esophagitis with MW tear with clot, oozing blood. S/P EGD 05/28/18 : Esophagitis with MW tear with clot , oozing blood. Received 3 cc of epinephrine injected and cauterized with gold probe. Xarelto was held. Pt had similar presentation in Dec. and was evaluated by our GI services. EGD 01/09/18 Small hiatal hernia. Mild gastritis, Bx was benign. received Protonix drip. GI evaluated the patient during this admission and EGD on showed gastritis antrum. Esophagitis in the distal esophagus, Ledy-Grande tear- healed. Hiatal hernia. Multiple biospies were taken. Hb was monitored and remained stable. Per GI's recs, continue omeprazole. avoid NSAIDs, soft diet and they have cleared pt to restart xarelto. f/u w GI in 1-2 weeks. Dementia with aggressive behavior and acute exacerbation. He did require soft restraints at one point but he was out of restraints x 24 hours. Continue home meds. Pt was calm and cooperative when I evaluated his this morning. agitation could have been from post anesthesia. - Time Spent with Patient Total time spent providing and/or coordinating discharge services: Greater than 30 minutes Exam Vital signs: Vital Signs 05/31/18 15:01 05/31/18 17:21 05/31/18 20:00 Temperature 97 F L 97.7 F Pulse Rate 74 71 Respiratory Rate 20 18 21 Blood Pressure 108/65 161/72 H Pulse Oximetry 100 100 06/01/18 07:45 06/01/18 12:00 Temperature 98.0 F 98.8 F Pulse Rate 78 86 Respiratory Rate 16 Blood Pressure 149/69 H 121/57 L Pulse Oximetry 99 96 Intake & Output 05/31/18 06/01/18 06/01/18 18:59 06:59 18:59 Intake Total 400 / 400 100 / 100 200 / 200 Balance 400 / 400 100 / 100 200 / 200 Weight 75 kg 75 kg Intake: IV 100 / 100 100 / 100 Protonix Inj 80 MG In NS Inj 100 / 100 100 / 100 100 ML @ 10 mls/hr IV.SIG .Q10H [facility] Rx#:[id number] Oral 200 / 200 Anesthesia Amount 300 / 300 Other: Date of Last Bowel Movement 05/31/18 05/31/18 # Bowel Movements 2 # Incontinent Bowel Movements 2 Weight On Admission 75 kg Patient laying in bed, appears calm CVS: Heart rate regular with no murmurs Lungs: Clear to auscultation no wheezing Abdomen: Soft, nontender, no guarding Moving extremities Neuro: Confused, is not oriented to self or place or time. However he is calm and pleasant Results Procedures completed during hospitalization: EGD Pending studies at discharge: Pending at discharge 05/31/18 Surgical [PTH] Routine Labs on day of discharge: Labs from last 24 hours 06/01/18 09:59 WBC 6.6 RBC 4.05 L Hgb 12.4 L Hct 35.6 L MCV 88.0 MCH 30.6 MCHC 34.7 RDW 13.9 Plt Count 268 MPV 7.6 Neut % (Auto) 84.1 H Lymph % (Auto) 10.3 [place] % (Auto) 4.6 Eos % (Auto) 0.6 Baso % (Auto) 0.4 Neut # (Auto) 5.5 Lymph # (Auto) 0.7 L [place] # (Auto) 0.3 Eos # (Auto) 0.0 Baso # (Auto) 0.0 WBC Differential . Differential Comment Auto diff final Discharge Plan - Discharge Disposition Patient Disposition: 03 Discharge to SNF - Discharge Condition Condition: Stable - Discharge Order Discharge Orders: Discharge Order (Routine); Ordered 06/01/18 Ordered By: Chrissy Fabian - Physicians Team Primary Care Provider: Yakelin Montilla Attending Provider: Chrissy Fabian Other Providers: Nicole Hernandez MD ; Eric Romo MD - Rxs /Orders / Referrals /Forms Prescriptions: New donepezil 5 mg Tablet 10 mg PO HS 30 Days Qty: 60 RF: 0 Continue amlodipine 10 mg Tablet 10 mg PO DAILY donepezil 10 mg Tablet 10 mg PO HS furosemide 20 mg Tablet 20 mg PO DAILY metformin 500 mg Tablet 500 mg PO BIDPC omeprazole 20 mg Tablet,Delayed Release (Dr/Ec) 20 mg PO DAILY ondansetron HCl 4 mg/5 mL Solution 4 mg PO Q8HR PRN (Reason: Nausea And Vomiting) potassium chloride 20 mEq/15 mL Liquid 20 meq PO DAILY quetiapine [Seroquel] 200 mg Tablet 200 mg PO BID rivaroxaban 15 mg Tablet 15 mg PO DAILY Referrals: Abigail Vo MD [Physician] - See Instructions (In 2 Weeks) Yakelin Montilla MD [Primary Care Provider] - See Instructions
== END 2018-06-01 15:32 ==
LOC: NEPFCDU 08:28
PROVIDERS: ADMIT Hospitalist; ATTEND Hospitalist